=== PATIENT | male | born 1990 | race Hispanic/Latino ===

== ENCOUNTER 2017-06-06 20:59 | Emergency (ER) | payer SELFPAY | END 2017-06-06 22:56 | disposition home or self-care (01) | LOC: ERS 20:59 | DX: K64.8 Other hemorrhoids (principal); F17.210 Nicotine dependence, cigarettes, uncomplicated | CPT/HCPCS: 99282 ==

== ENCOUNTER 2019-03-20 15:23 | Emergency (ER) | payer SELFPAY ==
--- NOTE | 2019-03-20 15:50 | RAD ---
EXAM: XR Hand Rt 3 View STANDARD PROVIDED CLINICAL HISTORY: Pain status post injury COMPARISON: None FINDINGS: Comminuted, apex dorsally angulated fracture of the fifth metacarpal neck. No additional fracture is evident. Joint spaces appear preserved. Alignment appears otherwise anatomic. IMPRESSION: Angulated fifth metacarpal neck fracture.
[2019-03-20] MEDS ORDERED: HYDROcodone/Acetaminophen 5/325 mg Tablet ONE (17:32)
[2019-03-20] MEDS ORDERED: Lidocaine 1% (PF) 30 ML VIAL ONE (17:36)
== END 2019-03-20 19:18 | disposition home or self-care (01) ==
LOC: ERS 15:23
DX: S62.336A Displaced fracture of neck of fifth metacarpal bone, right hand, initial encounter for closed fracture (principal); W22.8XXA Striking against or struck by other objects, initial encounter
CPT/HCPCS: 29125; J2001

== ENCOUNTER 2019-05-26 17:58 | Inpatient (IN) | payer SELFPAY ==
[~2019-05-26 17:58] MED LIST: Iopamidol-370 76% 500 ML 1 ML ONE
[2019-05-26] MEDS ORDERED: Acetaminophen 500 MG TAB ONE (18:23)
[2019-05-26] MEDS ORDERED: Morphine 4 MG/ML VIAL ONE (18:23)
[2019-05-26] MEDS ORDERED: Ondansetron PF 4 MG/2 ML Vial ONE (18:24)
[2019-05-26 18:28] LABS: #Eosinphils 0.1 thou/uL (0.0-0.7); #Monocytes 1.9 thou/uL (0.11-0.59); #Neutrophils 14.8 thou/uL (1.40-6.50); %Basophils 0.1 % (0.0-1.0); %Eosinophils 0.4 % (0.0-10.0); %Lymphocytes 10.7 % (21.0-51.0); %Monocytes 9.9 % (0.0-10.0); Hemoglobin 13.9 g/dL (14.0-18.0); Mean Corpuscular HGB CONC 33.5 g/dL (32.0-36.0); Mean Corpuscular Volume 86.7 fL (78.0-98.0); Mean Platelet Volume 7.9 fL (7.4-10.4); Platelet Count 306 thou/uL (130-400); RBC Distribution Width 11.8 % (11.5-14.5); Red Blood Cell (RBC) Count 4.78 mill/uL (4.70-6.10); White Blood Cell (WBC) Count 18.7 thou/uL (4.8-10.8)
[2019-05-26 18:47] LABS: ALT (SGPT) 78 U/L (8-55); AST (SGOT) 40 U/L (5-34); Albumin 4.3 g/dL (3.5-5.0); Alkaline Phosphatase 195 U/L (40-110); Anion Gap 14 mmol/L (10-20); BUN (Urea Nitrogen) 8 mg/dL (8.9-20.6); Bilirubin, Total 0.8 mg/dL (0.2-1.2); Calc. Creatinine Clearance 0 mL/min (70-130); Calcium 9.8 mg/dL (7.8-10.44); Carbon Dioxide 27 mmol/L (22-29); Chloride 99 mmol/L (98-107); Estimated GFR-MDRD Greater than 90; Glucose 126 mg/dL (70-105); Lipase 6 U/L (8-78); Potassium 3.7 mmol/L (3.5-5.1); Protein, Total 8.3 g/dL (6.0-8.3); Sodium 136 mmol/L (136-145)
--- NOTE | 2019-05-26 18:50 | RAD ---
Chest one view HISTORY: Chest pain. COMPARISON: 10/19/2011. FINDINGS: Cardiac silhouette is magnified by projection. Pulmonary vasculature is unremarkable. Media stinum is midline. No lobar consolidation or evidence of pneumothorax. ekg monitor tech leads overlie the chest. IMPRESSION: No active cardiopulmonary abnormalities are demonstrated.
[2019-05-26 19:12] LABS: Bacteria/HPF None Seen HPF (None Seen); Bilirubin Negative (Negative); Blood, Urine Negative (Negative); Clarity Clear (Clear); Glucose, Urine (Dipstick) Normal (Negative); Leukocyte Negative Leu/uL (Negative); Nitrite Negative (Negative); Protein, Urine (Dipstick) 30 mg/dL (Neg-Trace); RBC/HPF 0-3 HPF (0-3); Squamous Epithelial 0-3 HPF (0-3); WBC/HPF 0-3 HPF (0-3)
--- NOTE | 2019-05-26 19:42 | CT ---
CT ABDOMEN AND PELVIS: 05/26/19 COMPARISON: 10/19/11 HISTORY: Periumbilical abdominal pain. TECHNIQUE: Axial CT imaging at 5 mm intervals from the lung bases through the pubic symphysis with IV contrast. Coronal and sagittal reformatted imaging obtained. FINDINGS: The imaged lung bases are unremarkable. No free intraperitoneal air. The liver, gallbladder, spleen, pancreas, adrenal glands and kidneys demonstrate no acute findings. M ild nonspecific splenomegaly noted. There is prominent pericolonic inflammatory change within the pelvis on the left. There is marked wal l thickening of the sigmoid colon involving a segment of the sigmoid colon measuring approximately 10 cm in length. Adjacent to this is an extraluminal collection of fluid and gas posterior to the sigmo id colon measuring approximately 5.2 x 4.6 cm consistent with a developing abscess on the basis of c olonic perforation. Findings are likely on the basis of acute perforated sigmoid diverticulitis. There is no evidence for bowel obstruction. The appendix is unremarkable. The vascular structures of the abdomen/pelvis appear patent. No abdominal or pelvic lymphadenopathy i s seen. Review of the osseous structures demonstrates no worrisome lytic or blastic bone lesion. IMPRESSION: Findings consistent with acute sigmoid diverticulitis with perforation and developing adjacent absces s measuring up to 5.[address] Hilario made aware via phone by Dr. Pope at 7:30 p.m., 05/26/19. Code CR POS: DIANA
[2019-05-26] MEDS ORDERED: Piperacillin/Tazobactam 4.5 GM VIAL ONE (19:57)
[2019-05-26] MEDS ORDERED: Morphine 4 MG/ML VIAL SLOW IVP PRN (21:42)
[2019-05-26] MEDS ORDERED: Ondansetron PF 4 MG/2 ML Vial IVP PRN ×2 (21:44→21:47)
[2019-05-26] MEDS ORDERED: Ondansetron ODT 4 MG TAB SL PRN (21:44)
[2019-05-26] MEDS ORDERED: Morphine 2 MG/ML SYRINGE SLOW IVP PRN (21:47)
[2019-05-26] MEDS: D5 1/2 NS w/20 mEq KCL 1,000 ML IV SCH (22:14)
[2019-05-26] MEDS: Sodium Chloride 0.9% 1,000 ML IV SCH (22:15)
--- NOTE | 2019-05-26 22:16 | HP ---
CHIEF COMPLAINT: Abdominal pain. HISTORY OF PRESENT ILLNESS: Mr. Moore is a 29-year-old man with abdominal pain beginning last Saturday. He states that this was in the lower part of his abdomen and was fairly mild, but by Saturday, he started having fevers and yesterday, the pain became much worse. It was especially bad when he tried to urinate or have a bowel movement and today became unbearable, so he came to the emergency room. No nausea or vomiting. No diarrhea. He had a normal bowel movement earlier today, but it was quite painful and he was unable to have a complete bowel movement. The pain is not exacerbated by walking around, but it is exacerbated by eating, trying to have a bowel movement or emptying his bladder. Lab work in the ER was concerning for sepsis and a CT scan showed colitis, likely diverticulitis with developing posterior abscess which measured 5.2 cm in greatest diameter. PAST MEDICAL HISTORY: None. PAST SURGICAL HISTORY: None. SOCIAL HISTORY: He smokes one cigarette every three or four days. Does not drink or do any drugs. He is currently on parole and undergoes frequent drug testing. He admits to marijuana in the past, but no heavy drugs. FAMILY HISTORY: Colon problems in his grandfather and a great uncle, but no other medical problems in the family. His great uncle had cancer. The exact nature of his grandfather's colon issue is not clear. REVIEW OF SYSTEMS: Ten system review of systems is negative except per HPI. PHYSICAL EXAMINATION: VITAL SIGNS: Low-grade fever and tachycardia in the emergency room. Normal blood pressure and room air O2 sats and respiratory rate. GENERAL: Reveals a healthy-appearing young man, in no acute distress. He is not flushed or toxic. He is not jaundiced or icteric. HEENT: Unremarkable. NECK: Supple without lymphadenopathy or thyroid nodules. HEART: Regular, slightly tachycardic. No murmurs, rubs, or gallops are appreciated. LUNGS: Clear to auscultation bilaterally. He does not have pain with deep inspiration. ABDOMEN: Soft and nondistended. He is nontender to palpation in the upper abdomen. Mildly tender to palpation in the right lower quadrant and moderately tender in the left lower quadrant. He exhibits some voluntary guarding, but does not have any rigidity or rebound. EXTREMITIES: Warm and well perfused without edema. NEURO: No focal deficits. PSYCHIATRIC: Alert, oriented, and appropriate. LABORATORY DATA: White count is elevated at 18,000. Electrolytes are unremarkable. Bilirubin is mildly elevated as is AST and ALT. Lipase is normal. CT images are reviewed with our radiologist. He has a developing abscess posterior to the sigmoid colon with surrounding inflammation and stranding of that segment of the sigmoid colon. He does have diverticula in this area and this is felt to likely represent diverticulitis. There is no walled off abscess and no clear line of approach to this area due to the sigmoid colon, iliac and epigastric vessels and the ureter. ASSESSMENT: Diverticulitis with phlegmon and likely developing abscess posterior to the sigmoid colon. This is not percutaneously accessible. The patient does not have peritonitis, although he does have an elevated white count and fever. He is fairly comfortable after receiving pain medications and antibiotics. We are going to try a brief trial of antibiotics and likely re-image him in 48-72 hours. If he is developing an abscess, then this will likely need to be drained perhaps laparoscopically if not accessible to percutaneous drainage. If his clinical condition deteriorates, then surgical intervention will be planned which would likely consist of a Kate's procedure. However, if the phlegmon improves on antibiotics, then medical management alone may be adequate. The diagnosis and plan of care were discussed with the patient. All of his questions were answered. We are going to leave him on bowel rest and continue antibiotics. He was given Zosyn in the ER and this will be ordered to be continued as an inpatient. Job ID: [id number]
[2019-05-26] MEDS: Acetaminophen 1,000 MG in Premix Bag 1 BAG IVPB PRN (22:41)
[2019-05-26 23:15] VITALS: BMI 30.1
[2019-05-27] MEDS: Piperacillin/Tazobactam 3.375 GM in Sodium Chloride 0.9% 100 ML IVPB SCH ×4 (01:27→20:28)
[2019-05-27] MEDS ORDERED: Piperacillin/Tazobactam 4.5 GM in Sodium Chloride 0.9% 100 ML IVPB SCH (04:00)
[2019-05-27 05:14] LABS: #Eosinphils 0.1 thou/uL (0.0-0.7); #Monocytes 1.9 thou/uL (0.11-0.59); #Neutrophils 10.9 thou/uL (1.40-6.50); %Basophils 0.3 % (0.0-1.0); %Eosinophils 0.4 % (0.0-10.0); %Lymphocytes 13.2 % (21.0-51.0); %Monocytes 12.5 % (0.0-10.0); %Neutrophils 73.5 % (42.0-75.0); Hemoglobin 13.1 g/dL (14.0-18.0); Mean Corpuscular HGB CONC 32.8 g/dL (32.0-36.0); Mean Corpuscular Volume 88.6 fL (78.0-98.0); Mean Platelet Volume 8.4 fL (7.4-10.4); Platelet Count 231 thou/uL (130-400); RBC Distribution Width 11.9 % (11.5-14.5); Red Blood Cell (RBC) Count 4.51 mill/uL (4.70-6.10); White Blood Cell (WBC) Count 14.8 thou/uL (4.8-10.8)
[2019-05-27] MEDS: Acetaminophen 1,000 MG in Premix Bag 1 BAG IVPB PRN ×2 (05:15→17:22)
[2019-05-27 05:40] LABS: ALT (SGPT) 65 U/L (8-55); AST (SGOT) 39 U/L (5-34); Albumin 3.7 g/dL (3.5-5.0); Alkaline Phosphatase 163 U/L (40-110); Anion Gap 13 mmol/L (10-20); BUN (Urea Nitrogen) 7 mg/dL (8.9-20.6); Bilirubin, Total 0.8 mg/dL (0.2-1.2); Calc. Creatinine Clearance 189 mL/min (70-130); Calcium 9.1 mg/dL (7.8-10.44); Carbon Dioxide 23 mmol/L (22-29); Chloride 106 mmol/L (98-107); Estimated GFR-MDRD Greater than 90; Globulin 3.7 g/dL (2.4-3.5); Glucose 104 mg/dL (70-105); Potassium 4.5 mmol/L (3.5-5.1); Protein, Total 7.4 g/dL (6.0-8.3); Sodium 137 mmol/L (136-145)
[2019-05-27] MEDS: Sodium Chloride 0.9% 1,000 ML IV SCH (06:24)
[2019-05-27] MEDS: D5 1/2 NS w/20 mEq KCL 1,000 ML IV SCH ×2 (06:26→12:43)
[2019-05-27] MEDS: Enoxaparin Sodium 40 MG/0.4 ML SYRINGE SC SCH (08:03)
[2019-05-27] MEDS: Famotidine/PF 20 mg/2ml Vial SLOW IVP SCH ×2 (08:04→20:29)
[2019-05-27] MEDS: Morphine 4 MG/ML VIAL SLOW IVP PRN (12:45)
--- NOTE | 2019-05-27 17:03 | PDOC.GSPN ---
Surgery Progress Note: Subj - Subjective Narrative: Saw patient this morning and again this afternoon. He woke up hurting quite a bit this morning but is feeling better this afternoon. He states that when the pain comes is usually a 4-5 but has been as high as an 8 out of 10. It is worse when he tries to urinate or sit up for a long time. No nausea or vomiting. He is hungry. Afebrile. Heart rate has come down. White count is better although still elevated. He still has fairly severe focal tenderness in the left lower quadrant with mild tenderness in the right lower quadrant. Assessment/plan: Diverticulitis with phlegmon/abscess which is not percutaneously accessible undergoing trial of medical management. Overall stable with slight improvement. Continue current management. Surgery Progress Note: Obj - Vital signs Vital signs: Vital Signs - Most Recent Temp Pulse Resp BP Pulse Ox 98.7 F 100 18 133/81 97 05/27/19 16:20 05/27/19 16:20 05/27/19 16:20 05/27/19 16:20 05/27/19 16:20 Surgery Progress Note: Results - Labs Result Diagrams: 05/27/19 04:57 05/27/19 04:57 Lab results: Laboratory Results - last 24 hr 05/27/19 05/27/19 04:57 04:57 WBC 14.8 H RBC 4.51 L Hgb 13.1 L Hct 39.9 L MCV 88.6 MCH 29.0 MCHC 32.8 RDW 11.9 Plt Count 231 MPV 8.4 Neutrophils % 73.5 Lymphocytes % 13.2 L Monocytes % 12.5 H Eosinophils % 0.4 Basophils % 0.3 Neutrophils # 10.9 H Lymphocytes # 2.0 Monocytes # 1.9 H Eosinophils # 0.1 Basophils # 0.0 Sodium 137 Potassium 4.5 Chloride 106 Carbon Dioxide 23 Anion Gap 13 BUN 7 L Creatinine 0.76 Estimated GFR (MDRD) Greater than 90 Glucose 104 Calcium 9.1 Total Bilirubin 0.8 AST 39 H ALT 65 H Alkaline Phosphatase 163 H Serum Total Protein 7.4 Albumin 3.7 Globulin 3.7 H Albumin/Globulin Ratio 1.0 L
[2019-05-28] MEDS: D5 1/2 NS w/20 mEq KCL 1,000 ML IV SCH ×6 (00:22→20:25)
[2019-05-28] MEDS: Morphine 4 MG/ML VIAL SLOW IVP PRN ×6 (00:49→20:35)
[2019-05-28] MEDS: Piperacillin/Tazobactam 3.375 GM in Sodium Chloride 0.9% 100 ML IVPB SCH ×4 (01:19→20:26)
[2019-05-28 05:30] LABS: #Eosinphils 0.1 thou/uL (0.0-0.7); #Lymphocytes 1.6 thou/uL (1.20-3.40); #Monocytes 1.8 thou/uL (0.11-0.59); #Neutrophils 9.4 thou/uL (1.40-6.50); %Basophils 0.2 % (0.0-1.0); %Eosinophils 0.8 % (0.0-10.0); %Lymphocytes 12.1 % (21.0-51.0); %Monocytes 13.8 % (0.0-10.0); %Neutrophils 73.1 % (42.0-75.0); Hemoglobin 12.6 g/dL (14.0-18.0); Mean Corpuscular HGB CONC 32.9 g/dL (32.0-36.0); Mean Corpuscular Hemoglobin 28.8 pg (27.0-31.0); Mean Corpuscular Volume 87.3 fL (78.0-98.0); Mean Platelet Volume 8.2 fL (7.4-10.4); Platelet Count 256 thou/uL (130-400); RBC Distribution Width 11.6 % (11.5-14.5); Red Blood Cell (RBC) Count 4.36 mill/uL (4.70-6.10); White Blood Cell (WBC) Count 12.9 thou/uL (4.8-10.8)
[2019-05-28 05:55] LABS: ALT (SGPT) 47 U/L (8-55); AST (SGOT) 19 U/L (5-34); Albumin 3.8 g/dL (3.5-5.0); Alkaline Phosphatase 151 U/L (40-110); Anion Gap 12 mmol/L (10-20); BUN (Urea Nitrogen) 4 mg/dL (8.9-20.6); Bilirubin, Total 1.2 mg/dL (0.2-1.2); Calc. Creatinine Clearance 171 mL/min (70-130); Calcium 9.3 mg/dL (7.8-10.44); Carbon Dioxide 25 mmol/L (22-29); Chloride 102 mmol/L (98-107); Estimated GFR-MDRD Greater than 90; Globulin 3.6 g/dL (2.4-3.5); Glucose 107 mg/dL (70-105); Protein, Total 7.4 g/dL (6.0-8.3); Sodium 135 mmol/L (136-145)
[2019-05-28] MEDS: Enoxaparin Sodium 40 MG/0.4 ML SYRINGE SC SCH (09:00)
[2019-05-28] MEDS: Famotidine/PF 20 mg/2ml Vial SLOW IVP SCH ×2 (09:00→20:25)
--- NOTE | 2019-05-28 13:43 | PDOC.GSPN ---
Surgery Progress Note: Subj - Subjective Narrative: Patient had an episode of severe pain around midnight but after morphine it came down to about a 2. The pain came back this morning and he is having fairly severe dysuria which is noted today. No fevers. White count is slightly lower. He still has focal suprapubic and left lower quadrant pain without rigidity rebound or guarding. Assessment/plan: Persistent although somewhat episodic lower abdominal pain after over 24 hours of IV antibiotics. Going to reimage his abdomen. If the infectious process is resolving we'll give antibiotics more time but he may require operative drainage or even diversion. Surgery Progress Note: Obj - Vital signs Vital signs: Vital Signs - Most Recent Temp Pulse Resp BP Pulse Ox 98.5 F 93 16 93/40 L 99 05/28/19 11:22 05/28/19 11:22 05/28/19 11:22 05/28/19 11:22 05/28/19 11:22 Surgery Progress Note: Results - Labs Result Diagrams: 05/28/19 04:43 05/28/19 04:43 Lab results: Laboratory Results - last 24 hr 05/28/19 05/28/19 04:43 04:43 WBC 12.9 H RBC 4.36 L Hgb 12.6 L Hct 38.1 L MCV 87.3 MCH 28.8 MCHC 32.9 RDW 11.6 Plt Count 256 MPV 8.2 Neutrophils % 73.1 Lymphocytes % 12.1 L Monocytes % 13.8 H Eosinophils % 0.8 Basophils % 0.2 Neutrophils # 9.4 H Lymphocytes # 1.6 Monocytes # 1.8 H Eosinophils # 0.1 Basophils # 0.0 Sodium 135 L Potassium 4.0 Chloride 102 Carbon Dioxide 25 Anion Gap 12 BUN 4 L Creatinine 0.84 Estimated GFR (MDRD) Greater than 90 Glucose 107 H Calcium 9.3 Total Bilirubin 1.2 AST 19 ALT 47 Alkaline Phosphatase 151 H Serum Total Protein 7.4 Albumin 3.8 Globulin 3.6 H Albumin/Globulin Ratio 1.1 L
[2019-05-28] MEDS ORDERED: Iopamidol-370 76% 500 ML 1 ML ONE (15:17)
--- NOTE | 2019-05-28 15:34 | CT ---
CT OF THE ABDOMEN AND PELVIS WITH IV CONTRAST INDICATION: History of sigmoid diverticula colitis and pericolonic abscess COMPARISON: Prior CT abdomen and pelvis dated May 26, 2019 FINDINGS: ABDOMEN: Lung bases: Clear Liver: No focal lesion. Gallbladder: Normal appearing. Pancreas: Normal. Adrenal glands: Normal. Spleen: Normal. Kidneys and ureters: Normal. No hydronephrosis. Vasculature: Normal. Lymph nodes:No lymphadenopathy. Free fluid in abdomen:No free fluid is evident. PELVIS: Small and large bowel: There is persistent wall thickening involving the proximal sigmoid colon. The posterior and inferior. The nasima-colonic abscess is slightly larger on today's evaluation now measuring 5.9 x 4.1 x 3.5 cm in its greatest AP, mediolateral and craniocaudad dimensions respectivel y whereas the collection on the prior examination measured 5.1 x 2.8 x 3.5 cm. Appendix:Normal Bladder: Decompressed with diffuse wall thickening Rectal and perirectal soft tissues:Normal. Reproductive structures: Normal. Free fluid in pelvis: There is mild inflammatory stranding and free fluid within the lower pelvis. Lymphadenopathy pelvis: No lymphadenopathy is evident. Osseous structures: No acute osseous abnormality. No destructive osteolytic or osteoblastic lesion i s identified. Soft tissues:Normal. IMPRESSION: 1. Interval enlargement of the pericolonic abscess seen adjacent to the sigmoid colon likely related to perforated sigmoid diverticulitis. The position of this collection, posterior to the sigmoid colon, makes percutaneous CT drainage unfeasible.
[2019-05-28 19:45] LABS: Bacteria/HPF None Seen HPF (None Seen); Bilirubin Negative (Negative); Blood, Urine Negative (Negative); Clarity Clear (Clear); Glucose, Urine (Dipstick) Normal (Negative); Leukocyte Negative Leu/uL (Negative); Nitrite Negative (Negative); Protein, Urine (Dipstick) Negative (Neg-Trace); RBC/HPF 0-3 HPF (0-3); Squamous Epithelial 0-3 HPF (0-3); WBC/HPF 0-3 HPF (0-3)
[2019-05-28 19:47] LABS: Urine Culture Reflex No No
[2019-05-28] MEDS ORDERED: Morphine 2 MG/ML SYRINGE SLOW IVP PRN (20:08)
[2019-05-29] MEDS: Piperacillin/Tazobactam 3.375 GM in Sodium Chloride 0.9% 100 ML IVPB SCH ×4 (02:01→20:27)
[2019-05-29] MEDS: Morphine 4 MG/ML VIAL SLOW IVP PRN ×5 (03:59→21:53)
[2019-05-29] MEDS: D5 1/2 NS w/20 mEq KCL 1,000 ML IV SCH ×3 (04:04→20:27)
[2019-05-29] MEDS: Famotidine/PF 20 mg/2ml Vial SLOW IVP SCH ×2 (08:08→20:26)
[2019-05-29] MEDS: Enoxaparin Sodium 40 MG/0.4 ML SYRINGE SC SCH (08:08)
[2019-05-29] MEDS ORDERED: Dexamethasone 20 MG/5 ML VIAL ONE (11:25)
[2019-05-29] MEDS ORDERED: Lidocaine 1% PF 5 ML VIAL ONE (11:25)
[2019-05-29] MEDS ORDERED: PROPOFOL 200 MG/20 ML VIAL ONE (11:25)
[2019-05-29] MEDS ORDERED: Ketorolac Tromethamine 30 MG/ML VIAL ONE (11:25)
[2019-05-29] MEDS ORDERED: Rocuronium Bromide 10 MG/ML (10ML VIAL) ONE (11:25)
[2019-05-29] MEDS ORDERED: Ondansetron PF 4 MG/2 ML Vial ONE (11:25)
[2019-05-29] MEDS ORDERED: Glycopyrrolate 0.2 MG/ML 5 ML SYRINGE ONE (11:25)
[2019-05-29] MEDS ORDERED: Succinylcholine Chloride 20 MG/ML 10 ml SYRINGE FS ONE (11:25)
[2019-05-29] MEDS ORDERED: Bupivacaine HCl 0.5%/Epinephrine 1:200,000/PF 30 ml Vial ONE ×2 (13:44→14:44)
[2019-05-29] MEDS ORDERED: Bupivacaine 0.25% HCL 30 ML VIAL ONE (13:44)
[2019-05-29] MEDS ORDERED: Fentanyl 100 MCG/2 ML VIAL ONE ×5 (13:48→18:03)
[2019-05-29] MEDS ORDERED: Lidocaine 2% PF 5 ML VIAL ONE (14:44)
[2019-05-29] MEDS ORDERED: Meperidine HCl/PF 25 MG/ML VIAL SLOW IVP PRN (14:46)
[2019-05-29] MEDS ORDERED: Promethazine HCl 25 MG/ML VIAL SLOW IVP PRN (14:46)
[2019-05-29] MEDS ORDERED: HYDROmorphone 2 MG/ML VIAL SLOW IVP PRN (14:46)
[2019-05-29] MEDS ORDERED: Promethazine HCl 25 MG/ML VIAL IM PRN ×2 (14:46→22:40)
[2019-05-29] MEDS ORDERED: Ondansetron HCl/PF 4 MG/2 ML Vial IVP PRN (14:46)
--- NOTE | 2019-05-29 14:53 | PDOC.GSPN ---
Surgery Progress Note: Subj - Subjective Narrative: Patient continues to have episodes of severe lower abdominal pain relieved by morphine. No nausea or vomiting. White count is normal and vital signs are okay. Abdomen is still focally tender in the lower abdomen. Assessment/plan: Severe diverticulitis with enlarging diverticular abscess. Colonic inflammation and pain have not improved on IV antibiotics and I have recommended laparoscopic drainage of the abscess and diversion. I do not plan on performing a sigmoid colectomy at this time due to the severe inflammation of the colon and high risk of injury to ureter and other nearby structures, however this will be performed if necessary. Once he is diverted and drained the remaining inflammation should resolve, but this will not be immediate. We had a long discussion about the operation and its inherent risks and he wants to proceed. All of his questions were answered. Surgery Progress Note: Obj - Vital signs Vital signs: Vital Signs - Most Recent Temp Pulse Resp BP Pulse Ox 98.8 F 98 14 118/71 95 05/29/19 12:14 05/29/19 12:14 05/29/19 12:14 05/29/19 12:14 05/29/19 12:14 Surgery Progress Note: Results - Labs Result Diagrams: 05/28/19 04:43 05/28/19 04:43
[2019-05-29] MEDS ORDERED: diphenhydrAMINE 50 MG/ML VIAL IVP PRN (22:40)
[2019-05-29] MEDS ORDERED: Ondansetron PF 4 MG/2 ML Vial IVP PRN (22:40)
[2019-05-29] MEDS ORDERED: fentaNYL Citrate/PF 2,000 MCG in Sodium Chloride 0.9% 60 ML IV PRN (22:40)
[2019-05-29] MEDS ORDERED: Zolpidem Tartrate 5 MG TAB PO PRN (22:40)
[2019-05-29] MEDS ORDERED: Naloxone HCl 0.4 mg/ml Vial IV PRN (22:40)
[2019-05-29] MEDS ORDERED: diphenhydrAMINE 25 MG CAP PO PRN (22:40)
[2019-05-29] MEDS ORDERED: diphenhydrAMINE 50 MG/ML VIAL IM PRN (22:40)
[2019-05-29] MEDS ORDERED: Communication Order-Pharmacy FS SCH (22:45)
[2019-05-29] MEDS: Acetaminophen 1,000 MG in Premix Bag 1 BAG IVPB SCH (23:30)
[2019-05-29] MEDS: Ketorolac Tromethamine 30 MG/ML VIAL IVP SCH (23:31)
[2019-05-30] MEDS: Piperacillin/Tazobactam 3.375 GM in Sodium Chloride 0.9% 100 ML IVPB SCH ×4 (02:05→20:46)
[2019-05-30 05:41] LABS: #Lymphocytes 1.2 thou/uL (1.20-3.40); #Monocytes 1.1 thou/uL (0.11-0.59); #Neutrophils 11.6 thou/uL (1.40-6.50); %Basophils 0.1 % (0.0-1.0); %Eosinophils 0.3 % (0.0-10.0); %Lymphocytes 8.8 % (21.0-51.0); %Monocytes 7.9 % (0.0-10.0); %Neutrophils 82.9 % (42.0-75.0); Hemoglobin 12.2 g/dL (14.0-18.0); Mean Corpuscular HGB CONC 33.7 g/dL (32.0-36.0); Mean Corpuscular Hemoglobin 29.2 pg (27.0-31.0); Mean Corpuscular Volume 86.6 fL (78.0-98.0); Mean Platelet Volume 7.7 fL (7.4-10.4); Platelet Count 313 thou/uL (130-400); RBC Distribution Width 11.6 % (11.5-14.5); Red Blood Cell (RBC) Count 4.18 mill/uL (4.70-6.10)
[2019-05-30] MEDS: Acetaminophen 1,000 MG in Premix Bag 1 BAG IVPB SCH ×3 (05:41→18:22)
[2019-05-30] MEDS: Ketorolac Tromethamine 30 MG/ML VIAL IVP SCH ×3 (05:41→18:22)
[2019-05-30 05:59] LABS: Anion Gap 10 mmol/L (10-20); BUN (Urea Nitrogen) 7 mg/dL (8.9-20.6); Calc. Creatinine Clearance 192 mL/min (70-130); Calcium 9.1 mg/dL (7.8-10.44); Carbon Dioxide 27 mmol/L (22-29); Chloride 102 mmol/L (98-107); Estimated GFR-MDRD Greater than 90; Glucose 113 mg/dL (70-105); Potassium 4.3 mmol/L (3.5-5.1); Sodium 135 mmol/L (136-145)
[2019-05-30] MEDS: Enoxaparin Sodium 40 MG/0.4 ML SYRINGE SC SCH (08:16)
[2019-05-30] MEDS: Famotidine/PF 20 mg/2ml Vial SLOW IVP SCH ×2 (08:16→20:46)
[2019-05-30] MEDS: D5 1/2 NS w/20 mEq KCL 1,000 ML IV SCH ×2 (08:25→20:46)
--- NOTE | 2019-05-30 11:37 | PDOC.GSPN ---
Surgery Progress Note: Subj - Subjective Narrative: Patient is feeling better today. The CATTLE TESTER has really helped with his pain. It is a combination of the lower abdominal pain he was having before surgery plus the incisional pain. He is not having any nausea or vomiting. His colostomy has not yet put out any gas or stool. He is afebrile with normal vital signs. His white count is still elevated however. Abdomen is soft and nondistended. He is still focally tender in the lower abdomen and around his incisions. His colostomy looks healthy. The bag is empty. Assessment/plan: Doing well status post drainage of diverticular abscess and diversion. Awaiting return of bowel function. Continue IV antibiotics and await culture results. Dr. Robbins is covering this weekend. Surgery Progress Note: Obj - Vital signs Vital signs: Vital Signs - Most Recent Temp Pulse Resp BP Pulse Ox 97.5 F L 68 18 110/67 96 05/30/19 11:02 05/30/19 11:02 05/30/19 11:02 05/30/19 11:02 05/30/19 11:02 Surgery Progress Note: Results - Labs Result Diagrams: 05/30/19 05:23 05/30/19 05:23 Lab results: Laboratory Results - last 24 hr 05/30/19 05/30/19 05:23 05:23 WBC 14.0 H RBC 4.18 L Hgb 12.2 L Hct 36.1 L MCV 86.6 MCH 29.2 MCHC 33.7 RDW 11.6 Plt Count 313 MPV 7.7 Neutrophils % 82.9 H Lymphocytes % 8.8 L Monocytes % 7.9 Eosinophils % 0.3 Basophils % 0.1 Neutrophils # 11.6 H Lymphocytes # 1.2 Monocytes # 1.1 H Eosinophils # 0.0 Basophils # 0.0 Sodium 135 L Potassium 4.3 Chloride 102 Carbon Dioxide 27 Anion Gap 10 BUN 7 L Creatinine 0.75 Estimated GFR (MDRD) Greater than 90 Glucose 113 H Calcium 9.1
--- NOTE | 2019-05-30 11:57 | PDOC.OP ---
Operative Note - Operative Note Operative Note: PROCEDURE: Laparoscopic drainage of diverticular abscess, and descending colostomy SURGEON: Marlon Hutson M.D. DATE: 05/29/2019 PREOPERATIVE DIAGNOSIS: Diverticular abscess POSTOPERATIVE DIAGNOSIS: Diverticular abscess HISTORY: Patient with severe diverticulitis which is failed medical management. He has not enlarging diverticular abscess which is not percutaneously accessible. Recommendation was made to proceed to the operating room for laparoscopic drainage of the diverticular abscess and diversion of the fecal stream. PROCEDURE IN DETAIL: After informed consent was obtained and appropriate preoperative antibodies continued, the patient was taken to the operating room where he was placed in supine position and general endotracheal anesthesia was administered. The stomach was decompressed with an NG tube and the bladder decompressed with a Willis catheter and he was prepped and draped in standard sterile fashion. Local anesthesia was infused the skin and subcutaneous tissues at the level of the umbilicus and a transverse skin incision was made. The fascia was elevated and a Veress needle placed into the abdominal cavity but insufflation pressures rapidly apoorva to 15 consistent with insufflation into the preperitoneal space. A second attempt was made with the same result. Dissection was carried down to the fascia which was incised under direct vision and stay sutures placed. The peritoneum was grasped, elevated examined, and cut under direct vision. A trocar was placed into the peritoneal cavity and carbon dioxide gas insufflated to an intra-abdominal pressure 15 which the patient tolerated well. Dissecting trochars were then placed in the right lateral abdomen under direct laparoscopic vision and the inflamed segment of sigmoid colon identified densely adherent to the lateral sidewall. A plane was able to be developed between the colon and the lateral sidewall draining a large retrosigmoid abscess. All pus was suctioned out and sent for Gram stain and culture. The abscess cavity was then gently irrigated to clear taking care not to overfill the cavity and spilled contents into the general abdominal cavity. The colon proximal and distal to the inflamed loop of sigmoid colon were grossly normal to palpation and inspection. The descending colon was soft and noninflamed. This was mobilized medially by incising the white line of Toldt down to the level of the inflamed sigmoid colon. A mesenteric window was then created close to the wall of the descending colon just proximal to the inflamed segment of sigmoid colon. The laparoscopic bowel stapler was placed across the colon which was then divided. An area in the left rectus sheath was identified where the bowel was lax enough to reach up to the abdominal wall. An incision was made and dissection carried down to the anterior rectus sheath which was incised in a cruciate manner. The underlying muscles were split and the posterior rectus sheath was incised in cruciate manner as well. The colon was drawn out through the incision and confirmed to be in good orientation without twisting. This easily reached to the skin without tension and was secured with a [place] grasper. The patient had a large amount of pericolonic fat which prevented desufflation. The bowel was examined laparoscopically and confirmed to be in good orientation. A GUMARO drain was then placed through the right lower quadrant 12 mm trocar and drawn out through the right lateral 5 mm trocar. The end of the drain was placed into the abscess cavity. The 12 mm trocar was then withdrawn and the defect closed with a 0 Vicryl suture on a GraNee needle with excellent technical result. The drain was carefully watched as gas was desufflated through the umbilical trocar and confirmed to stay in good position with the end in the abscess cavity. The umbilical trocar was then removed and secured with the previously placed stay sutures. Additional local anesthesia infused at the skin incisions. The drain was secured to the skin with a drain stitch and the laparoscopic incisions were closed with 4-0 subcuticular Monocryl. Dermabond dressings were placed and the drain was dressed with gauze and Tegaderm. Attention was then turned to maturation of the colostomy. Due to the large amount of fatty tissue around the colon, and the large amount of subcutaneous fat, it was not possible to secure the colon to the anterior rectus sheath. The staple line was resected and the colon appeared small but healthy. An everted colostomy was created by securing the dermis to a Lembert suture several centimeters distal to the cut end of the colon and then to the edge of the colon at 4 quadrants. The full-thickness edge of the colon was then secured to the dermis circumferentially with interrupted 3-0 Vicryl sutures. Once this was completed the colostomy was interrogated digitally and was widely patent through the fascia. A colostomy appliance was placed and the patient was extubated and taken to recovery in good condition. Estimated blood loss was minimal. There were no complications. Specimen is pus for Gram stain and culture.
[2019-05-30] MEDS: fentaNYL Citrate/PF 2,000 MCG in Sodium Chloride 0.9% 60 ML IV PRN (15:58)
[2019-05-31] MEDS: Ketorolac Tromethamine 30 MG/ML VIAL IVP SCH ×3 (00:54→11:15)
[2019-05-31] MEDS: Piperacillin/Tazobactam 3.375 GM in Sodium Chloride 0.9% 100 ML IVPB SCH ×4 (00:55→20:33)
[2019-05-31 04:09] LABS: #Eosinphils 0.1 thou/uL (0.0-0.7); #Lymphocytes 1.8 thou/uL (1.20-3.40); %Basophils 0.1 % (0.0-1.0); %Eosinophils 1.2 % (0.0-10.0); %Lymphocytes 20.3 % (21.0-51.0); %Monocytes 11.5 % (0.0-10.0); Hemoglobin 10.5 g/dL (14.0-18.0); Mean Corpuscular Hemoglobin 28.8 pg (27.0-31.0); Mean Corpuscular Volume 87.1 fL (78.0-98.0); Mean Platelet Volume 7.7 fL (7.4-10.4); Platelet Count 289 thou/uL (130-400); RBC Distribution Width 11.7 % (11.5-14.5); Red Blood Cell (RBC) Count 3.66 mill/uL (4.70-6.10); White Blood Cell (WBC) Count 8.9 thou/uL (4.8-10.8)
[2019-05-31 04:32] LABS: Anion Gap 11 mmol/L (10-20); BUN (Urea Nitrogen) 5 mg/dL (8.9-20.6); Calc. Creatinine Clearance 192 mL/min (70-130); Calcium 8.6 mg/dL (7.8-10.44); Carbon Dioxide 27 mmol/L (22-29); Chloride 104 mmol/L (98-107); Estimated GFR-MDRD Greater than 90; Glucose 99 mg/dL (70-105); Potassium 3.8 mmol/L (3.5-5.1); Sodium 138 mmol/L (136-145)
[2019-05-31] MEDS: D5 1/2 NS w/20 mEq KCL 1,000 ML IV SCH ×2 (05:34→11:16)
[2019-05-31] MEDS: fentaNYL Citrate/PF 2,000 MCG in Sodium Chloride 0.9% 60 ML IV PRN (05:53)
[2019-05-31] MEDS: Famotidine/PF 20 mg/2ml Vial SLOW IVP SCH (09:34)
[2019-05-31] MEDS: Enoxaparin Sodium 40 MG/0.4 ML SYRINGE SC SCH (09:34)
[2019-05-31] MEDS ORDERED: traMADol HCl 50 MG TAB PO PRN (16:21)
[2019-05-31] MEDS ORDERED: HYDROcodone/Acetaminophen 5/325 mg Tablet PO PRN ×2 (16:21)
--- NOTE | 2019-05-31 16:29 | PRG ---
DATE OF SERVICE: 05/31/2019 SUBJECTIVE: Konrad Mooer is doing well today. He is afebrile. He is tolerating full liquids. He is having some belching. He has some output gas in small amounts throughout his colostomy. Colostomy is healthy. OBJECTIVE: LUNGS: Clear to auscultation. CARDIAC: Regular rate and rhythm. ABDOMEN: Soft and obese. Bowel sounds present. VITAL SIGNS: Temperature 98.2, heart rate 88, and blood pressure 120/80. ASSESSMENT AND PLAN: He has been instructed on colostomy care. Overall, he is doing well. We would recommend we hep-lock him. Resume his regular diet. Discontinue his CATCHER HELPER and plan for discharge home tomorrow. Job ID: [id number]
[2019-05-31] MEDS: Ibuprofen 600 MG TAB PO PRN (19:38)
[2019-05-31] MEDS: Acetaminophen 500 MG TAB PO PRN (19:39)
[2019-05-31] MEDS: traMADol HCl 50 MG TAB PO PRN (19:40)
[2019-05-31] MEDS: Gabapentin 300 MG CAP PO SCH (20:32)
[2019-06-01] MEDS: Ibuprofen 600 MG TAB PO PRN ×2 (02:32→13:44)
[2019-06-01] MEDS: traMADol HCl 50 MG TAB PO PRN ×3 (02:33→16:00)
[2019-06-01] MEDS: Piperacillin/Tazobactam 3.375 GM in Sodium Chloride 0.9% 100 ML IVPB SCH ×3 (02:35→13:36)
[2019-06-01] MEDS: Acetaminophen 500 MG TAB PO PRN ×3 (02:40→16:01)
[2019-06-01] MEDS: Gabapentin 300 MG CAP PO SCH (08:00)
[2019-06-01] MEDS: Enoxaparin Sodium 40 MG/0.4 ML SYRINGE SC SCH (08:00)
[2019-06-01 11:24] VITALS: TEMP 97.8
[2019-06-01 14:56] VITALS: BP 153/79
--- NOTE | 2019-06-01 15:13 | PRG ---
DATE OF SERVICE: 06/01/2019 SUBJECTIVE: Konrad Moore is doing well today. He is tolerating his diet. He has been instructed on colostomy care. His colostomy is functional and has produced stool. He has successfully changed his colostomy. He has viewed the video, and the stomal therapist is educating him on stoma care. He is tolerating regular diet. OBJECTIVE: LUNGS: Clear to auscultation. CARDIAC: Regular rate and rhythm without murmur or gallop. ABDOMEN: Soft and nontender. No masses. Colostomy is healthy. VITAL SIGNS: Temperature 97.8 degrees, heart rate 64, blood pressure 153/81. LABORATORY DATA: Laboratories yesterday were normal. ASSESSMENT AND PLAN: Status post colostomy diversion for severe diverticulitis without sigmoid resection. Plan is to discharge home today with Augmentin 875 p.o. b.i.d. for 7 days; Ultram p.r.n. pain, #30, 1 refill; [id number] Tylenol 1000 mg p.o. q.i.d., and Advil 600 mg q.i.d. p.r.n. pain. Follow up with Dr. Hutson in 3 to 4 weeks. Job ID: [id number]
[2019-06-01] MEDS ORDERED: Amoxicillin/Potassium Clav 875 MG TAB PO SCH (21:00)
--- NOTE | 2019-06-04 08:33 | PQF ---
Konrad Moore KIMIYE MD [id number] CLINICAL DOCUMENTATION CLARIFICATION FORM: POST DISCHARGE Addendum to original discharge summary date: ____ Late entry note date: __ DATE:06/04/2019 ATTN:JOSE GRIFFIN MD Please exercise your independent, professional judgment in responding to the clarification form. Clinical indicators are provided on the bottom of this form for your review Please check appropriate box(s) to clarify if the following diagnosis has been ruled in or ruled out:Sepsis [ ] Ruled in diagnosis [ ] Continue to treat [ ] Resolved [ ] Ruled out diagnosis [ ] Cannot rule out diagnosis [ ] Other diagnosis [ ] Unable to determine For continuity of documentation, please document condition throughout progress notes and discharge summary. Thank You. CLINICAL INDICATORS - SIGNS / SYMPTOMS / LABS Historian reports fever,Measured temperature of 100.0-Documented in ED on 05/26 by Sulaiman Thurman [id number] in ED on 05/26 by Sulaiman Thurman [id number] in ED on 05/26 by Sulaiman Thurman Tachycardic-Documented in ED on 05/26 by Sulaiman Thurman Perforated diverticulitis with abscess-Documented in ED on 05/26 by Sulaiman Thurman Sepsis-Documented in ED on 05/26 by Sulaiman Thurman WBC-18.7-Documented in Laboratory RISK FACTORS Perforated diverticulitis with abscess-Documented in ED on 05/26 by Sulaiman Thurman TREATMENTS Zosyn 3.375 gm IVPB-Documented in Medication snapshot Laparoscopic drainage of diverticular abscess and descending colostomy- Documented in OP note on 05/29 by Blanquita mckeon [employer] Needle Molder [employer] Win[employer] (This form is maintained as a part of the permanent medical record) 2014 [employer]. All Rights Reserved [email or web address] [not provided] VENTURA
== END 2019-06-01 16:15 | disposition home or self-care (01) | DRG 331 ==
LOC: ERS 17:58 → OBSVTOIN 19:39 → SJJU 19:39
PROVIDERS: ADMIT Surgery; ATTEND Surgery
PROC: 0D1M4Z4 Bypass Descending Colon to Cutaneous, Percutaneous Endoscopic Approach (ICD-10-PCS; principal; 2019-05-29)
PROC: 0D9N80Z Drainage of Sigmoid Colon with Drainage Device, Via Natural or Artificial Opening Endoscopic (ICD-10-PCS; 2019-05-29)
DX: K57.20 Diverticulitis of large intestine with perforation and abscess without bleeding (principal); F17.210 Nicotine dependence, cigarettes, uncomplicated
CPT/HCPCS: 36415; 36416; 71045; 74177; 80048; 80053; 81001; 81003; 81015; 83605; 83690; 85025; 87040; 87070; 87077; 87086; 87186; 87205; 93005; 96361; 96365; 96374; 96375; J0131; J0670; J1100; J1650; J1885; J2001; J2270; J2405; J2543; J2704; J3010; J3490; Q0163; Q9967; S0020; S0028

== ENCOUNTER 2019-07-13 17:58 | Observation (INO) | payer SELFPAY ==
[2019-07-13 18:46] LABS: #Lymphocytes 1.7 thou/uL (1.20-3.40); #Neutrophils 14.7 thou/uL (1.40-6.50); %Basophils 0.1 % (0.0-1.0); %Eosinophils 0.3 % (0.0-10.0); %Lymphocytes 9.3 % (21.0-51.0); %Monocytes 10.9 % (0.0-10.0); %Neutrophils 79.5 % (42.0-75.0); Hemoglobin 16.1 g/dL (14.0-18.0); Mean Corpuscular HGB CONC 33.7 g/dL (32.0-36.0); Mean Corpuscular Hemoglobin 29.3 pg (27.0-31.0); Mean Platelet Volume 9.5 fL (7.4-10.4); Platelet Count 187 thou/uL (130-400); RBC Distribution Width 13.5 % (11.5-14.5); Red Blood Cell (RBC) Count 5.49 mill/uL (4.70-6.10); White Blood Cell (WBC) Count 18.5 thou/uL (4.8-10.8)
--- NOTE | 2019-07-13 19:00 | CT ---
EXAM: CT abdomen and pelvis with IV contrast PROVIDED CLINICAL HISTORY: Abdominal pain COMPARISON: 05/28/2019 FINDINGS: The visualized lung bases are free of significant opacity. The solid abdominal organs demonstrate an unremarkable CT appearance. There is no bowel dilatation, inflammatory fat stranding, free fluid or free air apparent. There is n o evidence for appendicitis. Interval changes of diverting colostomy in the left lower quadrant. There is been interval resolution of the fluid collection previously demonstrated in the pelvis with a minimal amount of scar/granulation tissue seen in this region. No regional lymph node enlargement apparent. The regional major vascular structures appear unremarkab le. The osseous structures demonstrate no concerning lytic or blastic lesions. IMPRESSION: No evidence for an acute process.
[2019-07-13] MEDS ORDERED: Morphine 4 MG/ML VIAL ONE (19:07)
[2019-07-13 19:10] LABS: ALT (SGPT) 114 U/L (8-55); AST (SGOT) 47 U/L (5-34); Alkaline Phosphatase 157 U/L (40-110); Anion Gap 13 mmol/L (10-20); BUN (Urea Nitrogen) 9 mg/dL (8.9-20.6); Bilirubin, Total 0.9 mg/dL (0.2-1.2); Calc. Creatinine Clearance 0 mL/min (70-130); Calcium 10.2 mg/dL (7.8-10.44); Carbon Dioxide 30 mmol/L (22-29); Chloride 96 mmol/L (98-107); Estimated GFR-MDRD Greater than 90; Glucose 96 mg/dL (70-105); Lipase 7 U/L (8-78); Sodium 135 mmol/L (136-145)
[2019-07-13] MEDS ORDERED: Ondansetron PF 4 MG/2 ML Vial ONE (19:20)
[2019-07-13] MEDS ORDERED: metroNIDAZOLE 500 MG/100 ML BAG ONE (19:46)
[2019-07-13] MEDS ORDERED: Acetaminophen 500 MG TAB ONE (21:51)
[2019-07-13 22:42] VITALS: BMI 30.7
[2019-07-13] MEDS ORDERED: Morphine 2 MG/ML SYRINGE SLOW IVP SCH (22:46)
[2019-07-13] MEDS ORDERED: Ondansetron ODT 4 MG TAB PO PRN (23:48)
[2019-07-13] MEDS ORDERED: Acetaminophen 650 MG Suppository PR PRN (23:48)
[2019-07-13] MEDS ORDERED: Acetaminophen 325 MG TAB PO PRN (23:48)
[2019-07-13] MEDS ORDERED: Ondansetron PF 4 MG/2 ML Vial IVP PRN (23:48)
[2019-07-14 00:38] LABS: Bacteria/HPF None Seen HPF (None Seen); Bilirubin Negative (Negative); Blood, Urine Negative (Negative); Clarity Clear (Clear); Glucose, Urine (Dipstick) Normal (Negative); Leukocyte Negative Leu/uL (Negative); Nitrite Negative (Negative); Protein, Urine (Dipstick) Negative (Neg-Trace); RBC/HPF 0-3 HPF (0-3); Squamous Epithelial 0-3 HPF (0-3); Urobilinogen Normal mg/dL (Less than 2); WBC/HPF 0-3 HPF (0-3)
[2019-07-14 00:41] LABS: Urine Culture Reflex No No
--- NOTE | 2019-07-14 01:12 | HP ---
TIME OF ASSESSMENT: 2300 hours. CHIEF COMPLAINT: Left-sided abdominal pain. HISTORY OF PRESENT ILLNESS: Mr. Moore is a pleasant 29-year-old gentleman with a history of diverticular disease, who recently underwent laparoscopic drainage of a diverticular abscess and descending colostomy on May 29, 2019, by Dr. Hutson. The patient states he has been doing well since being discharged home. However, in the last couple of days, has developed some left-sided abdominal discomfort and low-grade temperatures. He reports noting some changes with his stool output. He states it is more watery than usual, but denies any blood. He has noted some increased abdominal swelling as well. He is passing gas through the ostomy. Reports feeling mildly nauseated but denies having any vomiting. Continues to tolerate a regular diet. He has been experiencing increasing fatigue with exertion and feeling "winded." Reports experiencing left-sided chest pain on one occasion, which was sharp in nature, but has not had recurrent chest pain for several days. Also reports having discomfort in the bilateral lower extremities. He denies any cramping, but states he feel "sore." Denies any cough or hemoptysis. Also reports noting some slight swelling bilaterally. REVIEW OF SYSTEMS: He denies having any dysuria or hematuria. No headaches or dizziness. No muscle aches. No runny nose or sore throat. All other review of systems is negative. ALLERGIES: NO KNOWN DRUG ALLERGIES. CURRENT MEDICATIONS: 1. Acetaminophen. 2. Ibuprofen. 3. Tramadol. PAST MEDICAL HISTORY: 1. Diverticular disease. 2. Diverticular abscess requiring surgery. PAST SURGICAL HISTORY: Diverticular abscess drainage and colostomy in May 2019. SOCIAL HISTORY: Denies any alcohol consumption or illicit drug use. Reports smoking cigarettes on occasion. FAMILY HISTORY: Noncontributory. PHYSICAL EXAMINATION: GENERAL: The patient appears well developed, well nourished, is in no acute distress. VITAL SIGNS: Temperature 99.5, pulse 112, respirations 20, O2 saturation 97% on room air, and blood pressure 127/81. HEENT: Normocephalic, atraumatic. Pupils are equal, round, and reactive to light. Sclerae without icterus. Oropharynx is clear. NECK: Supple. No lymphadenopathy. LUNGS: Clear to auscultation bilaterally without wheezes, rales, or rhonchi. CARDIAC: Regular rate and rhythm without audible murmurs, rubs, or gallops. ABDOMEN: Soft, mild firmness in the suprapubic region. No guarding or rigidity. Discomfort with palpation to the left side of the abdomen, to the left of the ostomy, as well as in the left suprapubic region. No renal angle tenderness. EXTREMITIES: Bilateral calves with minimal discomfort on palpation. No edema or swelling apparent. Peripheral pulses equal bilaterally. NEUROLOGIC: Alert and oriented x3. SKIN: Warm and dry. LABORATORY DATA: White count 18.5, hemoglobin 16.1, hematocrit 47.8, platelets 197, neutrophils 79.5%. Sodium 135, potassium 4.0, chloride 96, carbon dioxide 30, anion gap 13, BUN 9, creatinine 0.91, GFR greater than 90, glucose 96, lactic acid 1.2, calcium 10.2, total bilirubin 0.9, AST 47, ALT 114, alkaline phosphatase 157, total protein 9, albumin 5, globulin 4, lipase 7. IMAGING DATA: CT of the abdomen and pelvis showed no evidence for acute process. Interval resolution of fluid collection previously seen in the pelvis with a minimal amount of scarring/granulation tissue. No bowel dilatation, inflammatory fat stranding, free fluid or free air apparent. ED COURSE: In the Emergency Department, the patient underwent above investigations. He was started on IV antibiotics with Cipro and metronidazole. He was given morphine for the pain. He also has received IV fluids. The patient had a temperature of 101.5 in the ER. His case, per ED physician, was discussed with Dr. Hutson who advised since the CT was negative and patient had a white count that he be admitted for IV antibiotics under our service with plans to have him evaluated by General Surgery tomorrow morning. IMPRESSION AND PLAN: Mr. Moore is a pleasant 29-year-old gentleman presenting with left-sided abdominal discomfort, status post a colostomy/diverticular abscess drainage done in May [address] Hutson. The patient with CT abdomen and pelvis that was negative and laboratory studies are notable for an elevated white count as well as a fever. The patient, on exam, has some mild discomfort to the left side of the ostomy. However, the ostomy itself looks well, healthy and without any evidence of ischemia, bleeding, or purulent discharge. He has some mild firmness and discomfort in the left suprapubic region. Pain is controlled at the moment. 1. We will continue IV antibiotics. 2. General Surgery consultation pending for the morning. 3. We will continue to manage pain. 4. We will obtain a bladder scan as well as urinalysis and urine culture to ensure patient does not have underlying urinary infection causing retention. 5. Venous Dopplers given complaints of lower extremity swelling and shortness of breath, as well as tachycardia and episode of chest pain. We will add on a D-dimer as well. 6. Baseline chest x-ray for the morning. The patient is asymptomatic at present. No chest pain or shortness of breath at present. Saturations are normal. 7. Code status full. Surrogate decision maker is his , Trudy Quintero. The patient's case discussed with attending, who agrees with plan of care as described above. Job ID: [id number]
[2019-07-14] MEDS ORDERED: Morphine 2 MG/ML SYRINGE SLOW IVP PRN ×2 (02:40→09:33)
[2019-07-14] MEDS: Sodium Chloride 0.9% 1,000 ML IV SCH ×2 (02:50→13:27)
[2019-07-14 05:53] LABS: #Eosinphils 0.1 thou/uL (0.0-0.7); #Lymphocytes 1.7 thou/uL (1.20-3.40); #Monocytes 2.2 thou/uL (0.11-0.59); #Neutrophils 10.7 thou/uL (1.40-6.50); %Basophils 0.2 % (0.0-1.0); %Eosinophils 0.5 % (0.0-10.0); %Lymphocytes 11.6 % (21.0-51.0); %Monocytes 14.7 % (0.0-10.0); Hemoglobin 13.8 g/dL (14.0-18.0); Mean Corpuscular HGB CONC 30.5 g/dL (32.0-36.0); Mean Corpuscular Hemoglobin 26.8 pg (27.0-31.0); Mean Corpuscular Volume 87.9 fL (78.0-98.0); Mean Platelet Volume 9.1 fL (7.4-10.4); Platelet Count 157 thou/uL (130-400); RBC Distribution Width 13.4 % (11.5-14.5); Red Blood Cell (RBC) Count 5.14 mill/uL (4.70-6.10); White Blood Cell (WBC) Count 14.6 thou/uL (4.8-10.8)
[2019-07-14 06:18] LABS: ALT (SGPT) 79 U/L (8-55); AST (SGOT) 31 U/L (5-34); Albumin 4.2 g/dL (3.5-5.0); Alkaline Phosphatase 119 U/L (40-110); Anion Gap 10 mmol/L (10-20); BUN (Urea Nitrogen) 11 mg/dL (8.9-20.6); Bilirubin, Total 0.6 mg/dL (0.2-1.2); Calc. Creatinine Clearance 182 mL/min (70-130); Calcium 9.3 mg/dL (7.8-10.44); Carbon Dioxide 28 mmol/L (22-29); Chloride 104 mmol/L (98-107); Estimated GFR-MDRD Greater than 90; Globulin 3.4 g/dL (2.4-3.5); Glucose 105 mg/dL (70-105); Potassium 4.8 mmol/L (3.5-5.1); Protein, Total 7.6 g/dL (6.0-8.3); Sodium 137 mmol/L (136-145)
--- NOTE | 2019-07-14 08:17 | ULT ---
PRELIMINARY REPORT/[facility]/AFTER HOURS PROCEDURE BILATERAL LOWER EXTREMITY VENOUS DUPLEX ULTRASOUND: CLINICAL HISTORY: BLE pain/edema. Recent colon surgery. Negative for BLE DVT. TECHNIQUE: Real-time ultrasound scan of the veins of the bilateral lower extremity with color Doppler flow, spec tral waveform analysis and compression. COMPARISON: None provided. FINDINGS: DEEP VEINS: The common femoral, femoral, and popliteal veins are echolucent and compressible. These v essels demonstrate respiratory variation and augmentation. There is normal color Doppler flow through out. The visualized calf veins are also patent. SUPERFICIAL VEINS: The visualized greater saphenous vein is patent. SOFT TISSUES: No popliteal fossa cyst or other abnormalities. IMPRESSION: No deep venous thrombosis in the bilateral lower extremity. ELECTRONICALLY SIGNED BY: Juvencio Nicholson MD Jul 14, 2019 2:17:12 AM [employer] This report is intended for review by the ordering physician only, in accordance of law. If you recei ve this report in error, please call [facility] at [phone]. FINAL REPORT BILATERAL LOWER EXTREMITY VENOUS DOPPLER ULTRASOUND: I agree with the preliminary report given by Dr. Juvencio Nicholson of [facility]. CODE QA POS: [facility]
--- NOTE | 2019-07-14 08:24 | RAD ---
Exam: Chest 2 views HISTORY:Baseline FINDINGS: Lungs: No masses or consolidation. Cardiac silhouette: Normal size Pulmonary vessels: Normal Pleural Spaces: Clear Pneumothorax: None Osseous abnormalities: None of acuity. IMPRESSION: No focal consolidation.
[2019-07-14] MEDS ORDERED: Famotidine/PF 20 mg/2ml Vial SLOW IVP SCH (09:00)
[2019-07-14] MEDS ORDERED: Acetaminophen 1,000 MG in Premix Bag 1 BAG IVPB PRN (09:36)
--- NOTE | 2019-07-14 09:36 | PDOC.HOSPP ---
- Subjective Subjective: Mr. Moore reports pain around his left ostomy site. He states at home he noticed redness to the ostomy when he cleaned off the stool. He felt feverish at home and had nausea. Otherwise denies other symptoms. - Objective Vital Signs & Weight: Vital Signs (12 hours) Temp Pulse Resp BP BP Pulse Ox 07/14/19 07:27 100.0 F H 88 16 123/78 98 07/14/19 04:00 98.1 F 83 20 126/87 100 07/14/19 00:00 98.1 F 90 20 132/75 97 07/13/19 22:30 99.5 F 112 H 20 127/81 97 Weight Weight 208 lb 8 oz I&O: 07/13/19 07/14/19 07/15/19 06:59 06:59 06:59 Intake Total 400 Balance 400 Result Diagrams: 07/14/19 05:30 07/14/19 05:30 Hospitalist ROS - Review of Systems Constitutional: reports: fever. denies: chills, sweats, weakness, malaise, other Respiratory: denies: cough, dry, shortness of breath, hemoptysis, SOB with excertion, pleuritic pain, sputum, wheezing, other Cardiovascular: denies: chest pain, palpitations, orthopnea, paroxysmal noc. dyspnea, edema, light headedness, other Gastrointestinal: reports: nausea, abdominal pain. denies: vomiting, diarrhea, constipation, melena, hematochezia, other - Medication Medications: Active Medications Generic Name Dose Route Start Last Admin Trade Name Freq PRN Reason Stop Dose Admin Famotidine 20 mg 07/14/19 09:00 07/14/19 08:26 Pepcid SLOW IVP 20 mg Q12HR BRANT Administration Sodium Chloride 1,000 mls @ 100 mls/hr 07/14/19 03:00 07/14/19 02:50 Normal Saline 0.9% IV 07/14/19 12:59 1,000 mls .Q10H BRANT Administration - Exam General Appearance: NAD, awake alert Eye: PERRL, anicteric sclera ENT: normocephalic atraumatic, no oropharyngeal lesions, moist mucosa Neck: supple, symmetric, no JVD, no thyromegaly, no lymphadenopathy, no carotid bruit Heart: RRR, no murmur, no gallops, no rubs, normal peripheral pulses Respiratory: CTAB, no wheezes, no rales, no ronchi, normal chest expansion, no tachypnea, normal percussion Gastrointestinal: soft, non-tender, non-distended, normal bowel sounds, no palpable masses, no hepatomegaly, no splenomegaly, no bruit Gastrointestinal - other findings: left ostomy site, intact, stool brown, pain arround site Extremities: no cyanosis, no clubbing, no edema Skin: normal turgor, no lesions, no rashes Neurological: cranial nerve grossly intact, normal sensation to touch, no weakness, no focal deficits, no new deficit Musculoskeletal: normal tone, normal strength, no muscle wasting Psychiatric: normal affect, normal behavior, A&O x 3 Hosp A/P (1) Abdominal pain Code(s): R10.9 - UNSPECIFIED ABDOMINAL PAIN Qualifiers: Abdominal location: periumbilical Qualified Code(s): R10.33 - Periumbilical pain (2) Leukocytosis Code(s): D72.829 - ELEVATED WHITE BLOOD CELL COUNT, UNSPECIFIED Status: Acute (3) History of diverticular abscess of colon Code(s): Z87.19 - PERSONAL HISTORY OF OTHER DISEASES OF THE DIGESTIVE SYSTEM Status: Chronic - Plan Pain umbilical/left sided near ostomy site, no obvious guarding or rebound, possible superficial infection CT abdomen reviewed, no acute process noted within the abdomen Morphine 2mg IV q4hr PRN for pain Zofran PRN for nausea Empiric Zosyn, as having low grade fever and elevated WBC count Pending evaluation by surgical team Continue ostomy care DVT Prophylaxis: SCDs Code status: Full Disposition: Pending eval by surgery. Continue supportive care of ostomy site.
[2019-07-14] MEDS ORDERED: Piperacillin/Tazobactam 3.375 GM in Sodium Chloride 0.9% 100 ML IVPB SCH (12:00)
[2019-07-14 15:21] VITALS: BP 122/79; TEMP 98.1
--- NOTE | 2019-07-14 17:11 | PDISCHARGE ---
Discharge - Disposition Disposition: HOME - Patient Instructions Pre-Printed Education: Dehydration, Adult Additional Instructions: [facility] --OSTOMY SPECIALIST Care Plan Goals: FOCUS: Transition from Acute Care after Discharge GOAL: Successful transition to care in the community YOUR TASKS: (1) review all information outlined in your discharge packet (2) follow any instructions outlined in your discharge packet (3) contact your primary care provider if you have questions or need additional assistance - Referrals and PCP Follow-Up Referrals and PCP Follow-Up: Wound Care - [place] [Outside] - 07/21/19 2:30 pm Joaquim Armando MD [Primary Care Provider] - - Activity Instructions Activity:: Activity as Tolerated - Nourishment Instructions Nourishment:: No Restrictions Course - Course Orders, Labs, Meds: Admitted for pain around ostomy site. CT abdomen did not demonstrate acute abscess or process. Discussed with surgical team, likely his pain more superficial. Cleared by surgery to be discharged [facility] and follow up with ostomy wound care. At the time of discharge, patient understood and reported that pain had subsided. Was counseled on ostomy care and if he noticed high fevers or other worsening symptoms to come back to ED. Patient understood. Follow up with photogrammetric compilation specialist next week. Information provided. (1) Abdominal pain Code(s): R10.9 - UNSPECIFIED ABDOMINAL PAIN Qualifiers: Abdominal location: periumbilical Qualified Code(s): R10.33 - Periumbilical pain (2) Leukocytosis Code(s): D72.829 - ELEVATED WHITE BLOOD CELL COUNT, UNSPECIFIED Status: Acute (3) History of diverticular abscess of colon Code(s): Z87.19 - PERSONAL HISTORY OF OTHER DISEASES OF THE DIGESTIVE SYSTEM Status: Chronic
--- NOTE | 2019-07-14 18:02 | CON ---
DATE OF CONSULTATION: HISTORY OF PRESENT ILLNESS: Konrad Moore is a 29-year-old male patient, status post sigmoid colon resection, colostomy for diverticular abscess by Dr. Hutson. He is scheduled for colostomy reversal in August. He was admitted because of subjective temperature to 100.4 degrees. He is noted to have a mild elevation of his white count to 18,000 on admission yesterday and is 14,000 now. I have been asked to see him regarding problems related to his stoma. The patient reports he has skin irritation about his stoma. He had a CAT scan of the abdomen and pelvis on admission that was unremarkable. He has been placed on intravenous antibiotics empirically. Cultures have been negative to-date. PHYSICAL EXAMINATION: LUNGS: Evaluation reveals his lungs are clear to auscultation. CARDIAC: Regular rate and rhythm without murmur or gallop. ABDOMEN: Soft and nontender. Parastomal area inspected, clean stool from in-situ, visualized it. He has mild dermatitis parastomal. Abdomen is otherwise soft. VITAL SIGNS: He is afebrile. He has remained afebrile since being in the hospital. GENERAL : He denies any complaints at this time. He is tolerating a regular diet. EXTREMITIES: Unremarkable. ASSESSMENT AND PLAN: Stomatitis related to his colostomy stoma. We would recommend outpatient stoma therapy. He does not need intravenous antibiotics. We recommend discharge home and follow up with Dr. Hutson as an outpatient. Job ID: [id number]
== END 2019-07-14 15:23 | disposition home or self-care (01) ==
LOC: ERS 17:58 → T4-B 22:24
PROVIDERS: ADMIT Internal Medicine; ATTEND Internal Medicine
DX: R10.33 Periumbilical pain (principal); K94.09 Other complications of colostomy; D72.829 Elevated white blood cell count, unspecified; F17.200 Nicotine dependence, unspecified, uncomplicated; Z90.49 Acquired absence of other specified parts of digestive tract
CPT/HCPCS: 36415; 71046; 74177; 80053; 81001; 83605; 83690; 85025; 85379; 93970; 96361; 96365; 96367; 96375; 96376; G0378; J0131; J0744; J2270; J2405; J2543; J3490; S0028

== ENCOUNTER 2019-08-17 20:54 | Emergency (ER) | payer SELFPAY ==
[2019-08-17 21:32] LABS: #Eosinphils 0.1 thou/uL (0.0-0.7); #Lymphocytes 2.5 thou/uL (1.20-3.40); #Monocytes 0.7 thou/uL (0.11-0.59); #Neutrophils 5.1 thou/uL (1.40-6.50); %Basophils 0.4 % (0.0-1.0); %Eosinophils 1.3 % (0.0-10.0); %Lymphocytes 29.5 % (21.0-51.0); %Monocytes 8.1 % (0.0-10.0); %Neutrophils 60.7 % (42.0-75.0); Hemoglobin 14.6 g/dL (14.0-18.0); Mean Corpuscular HGB CONC 33.8 g/dL (32.0-36.0); Mean Corpuscular Hemoglobin 29.1 pg (27.0-31.0); Mean Corpuscular Volume 86.1 fL (78.0-98.0); Mean Platelet Volume 9.5 fL (7.4-10.4); Platelet Count 191 thou/uL (130-400); RBC Distribution Width 13.3 % (11.5-14.5); Red Blood Cell (RBC) Count 5.02 mill/uL (4.70-6.10); White Blood Cell (WBC) Count 8.4 thou/uL (4.8-10.8)
[2019-08-17 21:56] LABS: ALT (SGPT) 32 U/L (8-55); AST (SGOT) 22 U/L (5-34); Albumin 4.5 g/dL (3.5-5.0); Alkaline Phosphatase 91 U/L (40-110); Anion Gap 10 mmol/L (10-20); BUN (Urea Nitrogen) 12 mg/dL (8.9-20.6); Bilirubin, Total 0.3 mg/dL (0.2-1.2); Calc. Creatinine Clearance 0 mL/min (70-130); Calcium 9.3 mg/dL (7.8-10.44); Carbon Dioxide 25 mmol/L (22-29); Chloride 108 mmol/L (98-107); Estimated GFR-MDRD Greater than 90; Globulin 3.2 g/dL (2.4-3.5); Glucose 100 mg/dL (70-105); Potassium 4.3 mmol/L (3.5-5.1); Protein, Total 7.7 g/dL (6.0-8.3); Sodium 139 mmol/L (136-145)
== END 2019-08-17 23:26 | disposition left against medical advice (07) ==
LOC: ERS 20:54
DX: Z53.21 Procedure and treatment not carried out due to patient leaving prior to being seen by health care provider (principal); F17.210 Nicotine dependence, cigarettes, uncomplicated
CPT/HCPCS: 36415; 80053; 85025

== ENCOUNTER 2021-01-21 22:39 | Emergency (ER) | payer SELFPAY ==
[2021-01-21] MEDS ORDERED: HYDROcodone/Acetaminophen 10/325 mg Tablet ONE (23:57)
== END 2021-01-22 00:07 ==
LOC: ERS 22:39
DX: S39.011A Strain of muscle, fascia and tendon of abdomen, initial encounter (principal); F17.210 Nicotine dependence, cigarettes, uncomplicated; X58.XXXA Exposure to other specified factors, initial encounter
CPT/HCPCS: 99283

== ENCOUNTER 2021-05-08 10:45 | Emergency (ER) | payer SELFPAY ==
[2021-05-08] MEDS ORDERED: Ketorolac Tromethamine 30 MG/ML VIAL ONE (11:13)
== END 2021-05-08 12:00 | disposition home or self-care (01) ==
LOC: EEVIPCON 10:45 → ERS 10:45
DX: S46.911A Strain of unspecified muscle, fascia and tendon at shoulder and upper arm level, right arm, initial encounter (principal); F17.210 Nicotine dependence, cigarettes, uncomplicated; X50.9XXA Other and unspecified overexertion or strenuous movements or postures, initial encounter
CPT/HCPCS: 96372; J1885

== ENCOUNTER 2021-08-31 20:22 | Emergency (ER) | payer SELFPAY | END 2021-08-31 21:01 | disposition home or self-care (01) | LOC: ERS 20:22 | DX: Z46.89 Encounter for fitting and adjustment of other specified devices (principal); F17.210 Nicotine dependence, cigarettes, uncomplicated | CPT/HCPCS: 99282 ==

== ENCOUNTER 2022-03-21 22:28 | Emergency (ER) | payer SELFPAY ==
[2022-03-22] LABS: #Basophils 0.1 thou/uL (0.0-0.2); #Eosinphils 0.4 thou/uL (0.0-0.7); #Lymphocytes 3.4 thou/uL (1.20-3.40); #Monocytes 0.9 thou/uL (0.11-0.59); #Neutrophils 4.3 thou/uL (1.40-6.50); %Basophils 0.8 % (0.0-1.0); %Eosinophils 4.1 % (0.0-10.0); %Lymphocytes 37.3 % (21.0-51.0); %Monocytes 9.6 % (0.0-10.0); %Neutrophils 48.3 % (42.0-75.0); Hemoglobin 13.8 g/dL (14.0-18.0); Mean Corpuscular HGB CONC 34.7 g/dL (32.0-36.0); Mean Corpuscular Hemoglobin 31.4 pg (27.0-31.0); Mean Corpuscular Volume 90.5 fL (78.0-98.0); Mean Platelet Volume 9.8 fL (7.4-10.4); Platelet Count 186 thou/uL (130-400); RBC Distribution Width 11.8 % (11.5-14.5)
[2022-03-22 00:30] LABS: ALT (SGPT) 16 U/L (8-55); AST (SGOT) 18 U/L (5-34); Alkaline Phosphatase 65 U/L (40-110); Anion Gap 12 mmol/L (10-20); BUN (Urea Nitrogen) 15 mg/dL (8.9-20.6); Bilirubin, Total 0.4 mg/dL (0.2-1.2); Calc. Creatinine Clearance 0 mL/min (70-130); Calcium 8.5 mg/dL (7.8-10.44); Carbon Dioxide 23 mmol/L (22-29); Chloride 106 mmol/L (98-107); Estimated GFR 121; Globulin 2.2 g/dL (2.4-3.5); Glucose 86 mg/dL (70-105); Lipase 25 U/L (8-78); Potassium 3.3 mmol/L (3.5-5.1); Protein, Total 6.2 g/dL (6.0-8.3); Sodium 138 mmol/L (136-145)
[2022-03-22] MEDS ORDERED: Ketorolac Tromethamine 30 MG/ML VIAL ONE (01:25)
[2022-03-22] MEDS ORDERED: Potassium Chloride 20 MEQ TAB ONE (01:25)
== END 2022-03-22 01:45 | disposition home or self-care (01) ==
LOC: ERS 22:28
DX: S30.1XXA Contusion of abdominal wall, initial encounter (principal); E87.6 Hypokalemia; V18.4XXA Pedal cycle driver injured in noncollision transport accident in traffic accident, initial encounter; F17.210 Nicotine dependence, cigarettes, uncomplicated
CPT/HCPCS: 74177; 80053; 83690; 85025; 96372; J1885; Q9967

== ENCOUNTER 2022-03-27 20:49 | Inpatient (IN) | payer OTHER, SELFPAY ==
[~2022-03-27 20:49] MED LIST changes: +Iopamidol 370 76% 100 ML VIAL ONE; -Iopamidol-370 76% 500 ML 1 ML ONE
[2022-03-27] MEDS ORDERED: Ondansetron PF 4 MG/2 ML Vial ONE (21:21)
[2022-03-27 22:09] LABS: #Eosinphils 0.1 thou/uL (0.0-0.7); #Lymphocytes 1.5 thou/uL (1.20-3.40); #Monocytes 1.4 thou/uL (0.11-0.59); %Basophils 0.1 % (0.0-1.0); %Eosinophils 0.4 % (0.0-10.0); %Lymphocytes 7.7 % (21.0-51.0); %Monocytes 7.4 % (0.0-10.0); %Neutrophils 84.4 % (42.0-75.0); Hemoglobin 17.5 g/dL (14.0-18.0); Mean Corpuscular HGB CONC 33.5 g/dL (32.0-36.0); Mean Corpuscular Hemoglobin 29.8 pg (27.0-31.0); Mean Platelet Volume 9.6 fL (7.4-10.4); Platelet Count 248 thou/uL (130-400); RBC Distribution Width 12.3 % (11.5-14.5); Red Blood Cell (RBC) Count 5.88 mill/uL (4.70-6.10); White Blood Cell (WBC) Count 18.9 thou/uL (4.8-10.8)
[2022-03-27 22:29] LABS: ALT (SGPT) 28 U/L (8-55); AST (SGOT) 29 U/L (5-34); Albumin 5.7 g/dL (3.5-5.0); Alkaline Phosphatase 82 U/L (40-110); Anion Gap 23 mmol/L (10-20); BUN (Urea Nitrogen) 19 mg/dL (8.9-20.6); Bilirubin, Total 0.9 mg/dL (0.2-1.2); Calc. Creatinine Clearance 0 mL/min (70-130); Calcium 11.5 mg/dL (7.8-10.44); Carbon Dioxide 20 mmol/L (22-29); Chloride 101 mmol/L (98-107); Estimated GFR 41; Globulin 3.6 g/dL (2.4-3.5); Glucose 92 mg/dL (70-105); Lipase 8 U/L (8-78); Potassium 4.2 mmol/L (3.5-5.1); Protein, Total 9.3 g/dL (6.0-8.3); Sodium 140 mmol/L (136-145)
[2022-03-27 22:53] LABS: Bacteria/HPF 2+ HPF (None Seen); Bilirubin 1+ (Negative); Blood, Urine 1+ (Negative); Clarity Extra Turbid (Clear); Glucose, Urine (Dipstick) 30 mg/dL (Negative); Ketone, Urine Trace mg/dL (Negative); Leukocyte Negative Leu/uL (Negative); Nitrite Negative (Negative); Protein, Urine (Dipstick) 100 mg/dL (Neg-Trace); Specific Gravity, Urine 1.034 (1.002-1.036); WBC/HPF 0-3 HPF (0-3); pH, Urine 5.5 (5.0-9.0)
[2022-03-28] MEDS ORDERED: Piperacillin/Tazobactam 4.5 GM VIAL ONE (00:30)
[2022-03-28] MEDS ORDERED: Ondansetron PF 4 MG/2 ML Vial IVP PRN (00:41)
[2022-03-28] MEDS ORDERED: Bisacodyl 5 MG TAB PO PRN (00:41)
[2022-03-28] MEDS ORDERED: Zolpidem Tartrate 5 MG TAB PO PRN (00:41)
[2022-03-28] MEDS ORDERED: hydrALAZINE 20 MG/ML VIAL SLOW IVP PRN (00:43)
[2022-03-28] MEDS ORDERED: Vancomycin 1 GM/200 ML BAG ONE (01:11)
[2022-03-28 01:52] VITALS: BMI 30.7
[2022-03-28] MEDS: Dextrose 5 % And 0.9 % NaCl 1,000 ML IV SCH ×3 (01:59→17:02)
[2022-03-28] MEDS: metroNIDAZOLE 500 MG in Premix Bag 1 BAG IVPB SCH ×3 (01:59→17:47)
[2022-03-28] MEDS: Nicotine 14 MG PATCH TD SCH (02:00)
[2022-03-28 02:12] LABS: SARS-CoV-2 NAA Rapid Test Not Detected (NotDetected)
[2022-03-28] MEDS ORDERED: Cefepime 1 GM in Sodium Chloride 0.9% 100 ML IVPB SCH (04:00)
[2022-03-28] MEDS ORDERED: Vancomycin 1 GM in Premix Bag 1 BAG IVPB SCH (05:00)
[2022-03-28 06:10] LABS: #Basophils 0.1 thou/uL (0.0-0.2); #Eosinphils 0.1 thou/uL (0.0-0.7); #Lymphocytes 2.7 thou/uL (1.20-3.40); #Monocytes 1.4 thou/uL (0.11-0.59); #Neutrophils 7.1 thou/uL (1.40-6.50); %Basophils 0.4 % (0.0-1.0); %Eosinophils 0.6 % (0.0-10.0); %Lymphocytes 24.2 % (21.0-51.0); %Monocytes 12.2 % (0.0-10.0); %Neutrophils 62.5 % (42.0-75.0); Mean Corpuscular HGB CONC 32.6 g/dL (32.0-36.0); Mean Corpuscular Hemoglobin 30.3 pg (27.0-31.0); Mean Corpuscular Volume 93.1 fL (78.0-98.0); Mean Platelet Volume 9.1 fL (7.4-10.4); Platelet Count 227 thou/uL (130-400); RBC Distribution Width 12.2 % (11.5-14.5); Red Blood Cell (RBC) Count 4.63 mill/uL (4.70-6.10); White Blood Cell (WBC) Count 11.3 thou/uL (4.8-10.8)
[2022-03-28 06:27] LABS: ALT (SGPT) 21 U/L (8-55); AST (SGOT) 20 U/L (5-34); Alkaline Phosphatase 55 U/L (40-110); Anion Gap 13 mmol/L (10-20); BUN (Urea Nitrogen) 14 mg/dL (8.9-20.6); Bilirubin, Total 1.1 mg/dL (0.2-1.2); Calc. Creatinine Clearance 153 mL/min (70-130); Calcium 8.8 mg/dL (7.8-10.44); Carbon Dioxide 23 mmol/L (22-29); Chloride 106 mmol/L (98-107); Estimated GFR 112; Globulin 2.3 g/dL (2.4-3.5); Glucose 123 mg/dL (70-105); Potassium 3.6 mmol/L (3.5-5.1); Protein, Total 6.3 g/dL (6.0-8.3); Sodium 138 mmol/L (136-145)
[2022-03-28] MEDS ORDERED: Enoxaparin Sodium 30 MG/0.3 ML SYRINGE SC SCH (09:00)
[2022-03-28] MEDS: Famotidine 20 MG TAB PO SCH ×2 (09:33→21:57)
[2022-03-28] MEDS: Morphine 2 MG/ML VIAL SLOW IVP PRN ×4 (09:46→23:31)
[2022-03-28] MEDS: Cefepime 2 GM in Sodium Chloride 0.9% 100 ML IVPB SCH (15:07)
[2022-03-28] MEDS: HYDROcodone/Acetaminophen 5/325 mg Tablet PO PRN ×2 (16:08→21:55)
[2022-03-29] MEDS ORDERED: VANCOMYCIN 2 GRAM/500 ML BAG 2 GM in Premix Bag 1 BAG IVPB SCH (01:00)
[2022-03-29] MEDS: Nicotine 14 MG PATCH TD SCH (01:45)
[2022-03-29] MEDS: HYDROcodone/Acetaminophen 5/325 mg Tablet PO PRN ×3 (02:38→13:13)
[2022-03-29] MEDS: Dextrose 5 % And 0.9 % NaCl 1,000 ML IV SCH ×2 (02:39→09:14)
[2022-03-29] MEDS: metroNIDAZOLE 500 MG in Premix Bag 1 BAG IVPB SCH ×2 (02:39→09:15)
[2022-03-29] MEDS: Morphine 2 MG/ML VIAL SLOW IVP PRN ×2 (05:13→09:14)
[2022-03-29] MEDS: Cefepime 2 GM in Sodium Chloride 0.9% 100 ML IVPB SCH (05:14)
[2022-03-29] MEDS ORDERED: Enoxaparin Sodium 40 MG/0.4 ML SYRINGE SC SCH (09:00)
[2022-03-29] MEDS: Famotidine 20 MG TAB PO SCH (09:15)
[2022-03-29 14:55] VITALS: BP 117/72; TEMP 97.9
== END 2022-03-29 15:37 | disposition home or self-care (01) | DRG 605 ==
LOC: ERS 20:49 → SURG A 03-28 00:33 → OBSVTOIN 03-28 16:28
PROVIDERS: ADMIT Internal Medicine; ATTEND Internal Medicine
DX: S30.1XXA Contusion of abdominal wall, initial encounter (principal); N17.9 Acute kidney failure, unspecified; Z20.822 Contact with and (suspected) exposure to COVID-19; E86.0 Dehydration; F17.210 Nicotine dependence, cigarettes, uncomplicated; V19.9XXA Pedal cyclist (driver) (passenger) injured in unspecified traffic accident, initial encounter; Z87.19 Personal history of other diseases of the digestive system
CPT/HCPCS: 36415; 71045; 74177; 80053; 81003; 81015; 83605; 83690; 85025; 87040; 87086; 96361; 96365; 96372; 96374; 96375; 96376; 97139; G0378; J0692; J1650; J2270; J2405; J2543; J3370; J3490; J7042; Q9967; U0002

== ENCOUNTER 2022-07-06 10:25 | Outpatient (CLI) | payer SELFPAY ==
[2022-07-06 11:13] LABS: #Eosinphils 0.1 10x3/uL (0.0-0.5); #Monocytes 0.7 10x3/uL (0.0-1.1); #Neutrophils 2.4 10x3/uL (1.5-8.4); %Basophils 0.8 % (0.0-2.0); %Eosinophils 2.6 % (0.0-6.0); %Lymphocytes 34.7 % (18.0-47.0); %Monocytes 14.3 % (0.0-10.0); %Neutrophils 46.8 % (40.0-75.0); Hemoglobin 15.3 g/dL (13.5-17.5); Mean Corpuscular HGB CONC 33.3 g/dL (32.0-36.0); Mean Corpuscular Volume 87.1 fl (81.2-95.1); Mean Platelet Volume 12.2 fl (7.4-10.4); Platelet Count 181 10x3/uL (150-450); Red Blood Cell (RBC) Count 5.27 10x6/uL (4.32-5.72)
[2022-07-06 11:22] LABS: Anion Gap 17 mmol/L (10-20); BUN (Urea Nitrogen) 12 mg/dL (8.9-20.6); Calc. Creatinine Clearance 0 mL/min (70-130); Calcium 9.3 mg/dL (7.8-10.44); Carbon Dioxide 22 mmol/L (22-29); Chloride 107 mmol/L (98-107); Estimated GFR 120; Glucose 107 mg/dL (70-105); Potassium 4.2 mmol/L (3.5-5.1); Sodium 142 mmol/L (136-145)
[2022-07-06 12:49] LABS: Hemoglobin A1c 4.8 % (4.0-6.0)
== END 2022-07-06 10:26 | disposition home or self-care (01) ==
LOC: LABBT 10:25
PROVIDERS: ATTEND Surgery
DX: Z01.812 Encounter for preprocedural laboratory examination (principal); Z93.3 Colostomy status
CPT/HCPCS: 80048; 83036; 85025

== ENCOUNTER 2022-08-20 19:28 | Emergency (ER) | payer SELFPAY ==
[2022-08-20] MEDS ORDERED: Boostrix 0.5 ML (Tdap) VIAL (>/=7 yrs of age) ONE (19:48)
[2022-08-20] MEDS ORDERED: Lidocaine 1% PF 5 ML VIAL ONE (20:01)
== END 2022-08-20 20:24 | disposition home or self-care (01) ==
LOC: ERS 19:28
DX: S61.411A Laceration without foreign body of right hand, initial encounter (principal); F17.210 Nicotine dependence, cigarettes, uncomplicated; Z23 Encounter for immunization
CPT/HCPCS: 12001; 90471; 90715

== ENCOUNTER 2023-05-27 10:30 | Inpatient (IN) | payer OTHER ==
[2023-05-27 11:53] VITALS: BMI 25.5
[2023-06-03] MEDS ORDERED: Lidocaine 1% MPF 2 ML VIAL ONE (09:00)
[2023-06-03] MEDS ORDERED: Sodium Chloride 0.9% 100 ML ONE (09:01)
[2023-06-03] MEDS ORDERED: cefOXitin 2 GM VIAL ONE (09:01)
[2023-06-03] MEDS ORDERED: Midazolam HCl 2 mg/2 ml Vial ONE (09:40)
[2023-06-03] MEDS ORDERED: Bupivacaine 0.25% HCL 30 ML VIAL ONE (09:40)
[2023-06-03] MEDS ORDERED: fentaNYL 50 mcg/mL 1 mL Vial ONE ×5 (09:40→16:08)
[2023-06-03] MEDS ORDERED: Dexmedetomidine 200 MCG/2 ML VIAL ONE (09:48)
[2023-06-03] MEDS ORDERED: PROPOFOL 20 ML ONE (10:16)
[2023-06-03] MEDS ORDERED: Fentanyl 250 MCG/5 ML VIAL ONE (10:16)
[2023-06-03] MEDS ORDERED: Dexamethasone 4 mg/ml Vial ONE (10:17)
[2023-06-03] MEDS ORDERED: Lidocaine 1% PF 5 ML VIAL ONE ×2 (10:17→10:48)
[2023-06-03] MEDS ORDERED: Rocuronium Bromide 10 MG/ML (10ML VIAL) ONE ×2 (10:17→10:48)
[2023-06-03] MEDS ORDERED: Ondansetron PF 4 MG/2 ML Vial ONE ×2 (10:17→10:48)
[2023-06-03] MEDS ORDERED: SUGAMMADEX SODIUM 200 MG/2 ML VIAL ONE (10:20)
[2023-06-03] MEDS ORDERED: Dexamethasone 20 MG/5 ML VIAL ONE (10:48)
[2023-06-03] MEDS ORDERED: PROPOFOL 200 MG/20 ML VIAL ONE (10:48)
[2023-06-03] MEDS ORDERED: Bupivacaine/Epinephrine 0.25% 30 ML VIAL ONE (10:48)
[2023-06-03] MEDS ORDERED: Promethazine HCl 25 MG/ML VIAL IM PRN ×2 (11:12→12:55)
[2023-06-03] MEDS ORDERED: Ondansetron HCl/PF 4 MG/2 ML Vial IVP PRN (11:12)
[2023-06-03] MEDS ORDERED: Ketorolac Tromethamine 30 MG/ML VIAL IVP PRN (11:12)
[2023-06-03] MEDS ORDERED: HYDROmorphone 2 MG/ML VIAL SLOW IVP PRN (11:12)
[2023-06-03] MEDS ORDERED: Ondansetron PF 4 MG/2 ML Vial IVP PRN (12:55)
[2023-06-03] MEDS ORDERED: hydrALAZINE 20 MG/ML VIAL SLOW IVP PRN (12:55)
[2023-06-03] MEDS ORDERED: Ipratropium/Albuterol 3 ML NEB NEB PRN (12:55)
[2023-06-03] MEDS ORDERED: Morphine 2 MG/ML VIAL SLOW IVP PRN (12:55)
[2023-06-03] MEDS ORDERED: Ketorolac Tromethamine 30 MG/ML VIAL ONE (13:42)
[2023-06-03] MEDS ORDERED: HYDROmorphone 0.5 MG/0.5 ML SYRINGE ONE ×4 (14:11→17:28)
[2023-06-03] MEDS ORDERED: fentaNYL PF 100 MCG/2 ML SYRINGE ONE (15:34)
[2023-06-03] MEDS ORDERED: cefOXitin 2 GM in Sodium Chloride 0.9% 100 ML IVPB SCH (17:00)
[2023-06-03] MEDS ORDERED: Morphine 4 MG/ML VIAL ONE (17:59)
[2023-06-03] MEDS ORDERED: Ketorolac Tromethamine 30 MG/ML VIAL IVP SCH (18:00)
[2023-06-03] MEDS: Morphine 4 MG/ML VIAL SLOW IVP PRN ×3 (18:16→22:13)
[2023-06-03] MEDS: Sodium Chloride 0.9% 1,000 ML IV SCH ×2 (18:18→20:15)
[2023-06-03] MEDS: Famotidine/PF 20 mg/2ml Vial SLOW IVP SCH (20:11)
[2023-06-03] MEDS: Famotidine 20 MG TAB PO SCH (21:38)
[2023-06-04] MEDS: Morphine 4 MG/ML VIAL SLOW IVP PRN ×4 (00:01→07:07)
[2023-06-04] MEDS: Ketorolac Tromethamine 30 MG/ML VIAL IVP SCH ×5 (02:44→23:33)
[2023-06-04] MEDS ORDERED: cefOXitin 2 GM in Sodium Chloride 0.9% 100 ML IVPB SCH (04:00)
[2023-06-04] MEDS: Sodium Chloride 0.9% 1,000 ML IV SCH ×4 (04:56→23:33)
[2023-06-04 05:25] LABS: #Basophils 0.1 thou/uL (0.0-0.2); #Monocytes 2.2 thou/uL (0.11-0.59); #Neutrophils 16.9 thou/uL (1.40-6.50); %Basophils 0.2 % (0.0-1.0); %Lymphocytes 6.7 % (21.0-51.0); %Monocytes 10.5 % (0.0-10.0); %Neutrophils 81.4 % (42.0-75.0); Hemoglobin 11.6 g/dL (14.0-18.0); Mean Corpuscular HGB CONC 32.2 g/dL (32.0-36.0); Mean Corpuscular Hemoglobin 29.1 pg (27.0-31.0); Mean Corpuscular Volume 90.5 fl (78.0-98.0); Mean Platelet Volume 11.8 fL (7.4-10.4); Platelet Count 230 10x3/uL (130-400); RBC Distribution Width 13.1 % (11.5-14.5); Red Blood Cell (RBC) Count 3.98 mill/uL (4.70-6.10); White Blood Cell (WBC) Count 20.7 10x3/uL (4.8-10.8)
[2023-06-04 06:02] LABS: Anion Gap 16 mmol/L (10-20); BUN (Urea Nitrogen) 11 mg/dL (8.9-20.6); Calc. Creatinine Clearance 140 mL/min (70-130); Calcium 8.5 mg/dL (7.8-10.44); Carbon Dioxide 23 mmol/L (22-29); Chloride 101 mmol/L (98-107); Estimated GFR 119; Glucose 139 mg/dL (70-105); Potassium 4.1 mmol/L (3.5-5.1); Sodium 136 mmol/L (136-145)
[2023-06-04] MEDS ORDERED: Promethazine HCl 25 MG/ML VIAL IM PRN ×2 (08:45→19:16)
[2023-06-04] MEDS ORDERED: Zolpidem Tartrate 5 MG TAB PO PRN (08:45)
[2023-06-04] MEDS ORDERED: Naloxone HCl 0.4 mg/ml Vial IV PRN ×2 (08:45→19:16)
[2023-06-04] MEDS ORDERED: Ondansetron PF 4 MG/2 ML Vial IVP PRN (08:45)
[2023-06-04] MEDS ORDERED: Fentanyl CADD 100 ML IVPB SCH ×2 (08:45→19:05)
[2023-06-04] MEDS ORDERED: diphenhydrAMINE 25 MG CAP PO PRN ×2 (08:45→19:16)
[2023-06-04] MEDS ORDERED: diphenhydrAMINE 50 MG/ML VIAL IM/IV PRN (08:45)
[2023-06-04] MEDS: Famotidine/PF 20 mg/2ml Vial SLOW IVP SCH ×2 (10:25→20:53)
[2023-06-04] MEDS: Famotidine 20 MG TAB PO SCH ×2 (10:26→21:09)
[2023-06-04] MEDS ORDERED: diphenhydrAMINE 50 MG/ML VIAL IM PRN (19:16)
[2023-06-04] MEDS ORDERED: diphenhydrAMINE 50 MG/ML VIAL IVP PRN (19:16)
[2023-06-04] MEDS ORDERED: Communication Order-Pharmacy FS SCH (19:30)
[2023-06-04] MEDS: HYDROmorphone/PF 10 MG in Sodium Chloride 0.9% 99 ML IV PRN (20:35)
[2023-06-05] MEDS: Ondansetron PF 4 MG/2 ML Vial IVP PRN ×2 (00:37→10:19)
[2023-06-05 03:42] LABS: #Monocytes 1.7 thou/uL (0.11-0.59); #Neutrophils 10.4 thou/uL (1.40-6.50); %Basophils 0.2 % (0.0-1.0); %Lymphocytes 10.6 % (21.0-51.0); %Monocytes 12.6 % (0.0-10.0); %Neutrophils 76.1 % (42.0-75.0); Mean Corpuscular HGB CONC 32.9 g/dL (32.0-36.0); Mean Corpuscular Hemoglobin 30.1 pg (27.0-31.0); Mean Corpuscular Volume 91.5 fl (78.0-98.0); Mean Platelet Volume 11.5 fL (7.4-10.4); Platelet Count 184 10x3/uL (130-400); RBC Distribution Width 13.2 % (11.5-14.5); Red Blood Cell (RBC) Count 2.59 mill/uL (4.70-6.10); White Blood Cell (WBC) Count 13.7 10x3/uL (4.8-10.8)
[2023-06-05 03:46] LABS: Hematocrit 23.7 % (42.0-52.0); Hemoglobin 7.8 g/dL (14.0-18.0)
[2023-06-05 03:58] LABS: Anion Gap 12 mmol/L (10-20); BUN (Urea Nitrogen) 14 mg/dL (8.9-20.6); Calc. Creatinine Clearance 145 mL/min (70-130); Calcium 8.5 mg/dL (7.8-10.44); Carbon Dioxide 26 mmol/L (22-29); Chloride 105 mmol/L (98-107); Estimated GFR 120; Glucose 130 mg/dL (70-105); Potassium 4.9 mmol/L (3.5-5.1); Sodium 138 mmol/L (136-145)
[2023-06-05] MEDS: Ketorolac Tromethamine 30 MG/ML VIAL IVP SCH ×4 (05:42→19:58)
[2023-06-05] MEDS: Sodium Chloride 0.9% 1,000 ML IV SCH ×3 (05:46→23:01)
[2023-06-05 09:05] LABS: Hematocrit 21.8 % (42.0-52.0); Hemoglobin 7.1 g/dL (14.0-18.0)
[2023-06-05] MEDS: Famotidine/PF 20 mg/2ml Vial SLOW IVP SCH ×2 (10:19→19:58)
[2023-06-05] MEDS: Famotidine 20 MG TAB PO SCH ×2 (10:19→19:55)
[2023-06-05] MEDS: HYDROmorphone/PF 10 MG in Sodium Chloride 0.9% 99 ML IV PRN (10:22)
[2023-06-05 13:10] LABS: Hematocrit 19.8 % (42.0-52.0); Hemoglobin 6.4 g/dL (14.0-18.0)
[2023-06-06] MEDS: HYDROmorphone/PF 10 MG in Sodium Chloride 0.9% 99 ML IV PRN (00:47)
[2023-06-06 01:23] LABS: Hematocrit 22.2 % (42.0-52.0); Hemoglobin 7.6 g/dL (14.0-18.0)
[2023-06-06] MEDS: Ketorolac Tromethamine 30 MG/ML VIAL IVP SCH (05:30)
[2023-06-06] MEDS: Sodium Chloride 0.9% 1,000 ML IV SCH ×3 (08:17→21:42)
[2023-06-06] MEDS: Famotidine/PF 20 mg/2ml Vial SLOW IVP SCH ×2 (08:18→20:04)
[2023-06-06] MEDS: Famotidine 20 MG TAB PO SCH ×2 (08:19→20:03)
[2023-06-06 09:25] LABS: Hematocrit 23.3 % (42.0-52.0); Hemoglobin 7.8 g/dL (14.0-18.0)
[2023-06-06] MEDS ORDERED: Fentanyl CADD 100 ML IVPB SCH (15:30)
[2023-06-06 17:16] LABS: Hematocrit 22.5 % (42.0-52.0); Hemoglobin 7.7 g/dL (14.0-18.0)
[2023-06-06] MEDS: Ondansetron PF 4 MG/2 ML Vial IVP PRN (17:35)
[2023-06-06 17:56] LABS: #Eosinphils 0.2 thou/uL (0.0-0.7); #Monocytes 0.9 thou/uL (0.11-0.59); #Neutrophils 5.8 thou/uL (1.40-6.50); %Basophils 0.2 % (0.0-1.0); %Eosinophils 1.8 % (0.0-10.0); %Lymphocytes 14.8 % (21.0-51.0); %Monocytes 11.3 % (0.0-10.0); %Neutrophils 70.9 % (42.0-75.0); Hematocrit 22.3 % (42.0-52.0); Hemoglobin 7.5 g/dL (14.0-18.0); Mean Corpuscular HGB CONC 33.6 g/dL (32.0-36.0); Mean Corpuscular Hemoglobin 30.2 pg (27.0-31.0); Mean Corpuscular Volume 89.9 fl (78.0-98.0); Mean Platelet Volume 10.5 fL (7.4-10.4); Platelet Count 145 10x3/uL (130-400); RBC Distribution Width 13.2 % (11.5-14.5); Red Blood Cell (RBC) Count 2.48 mill/uL (4.70-6.10); White Blood Cell (WBC) Count 8.2 10x3/uL (4.8-10.8)
[2023-06-06 20:43] LABS: Hematocrit 22.6 % (42.0-52.0); Hemoglobin 7.6 g/dL (14.0-18.0)
[2023-06-07 02:30] LABS: Hematocrit 22.4 % (42.0-52.0); Hemoglobin 7.5 g/dL (14.0-18.0)
[2023-06-07] MEDS: Ondansetron PF 4 MG/2 ML Vial IVP PRN (05:33)
[2023-06-07] MEDS: Famotidine/PF 20 mg/2ml Vial SLOW IVP SCH ×2 (09:12→20:38)
[2023-06-07] MEDS: Sodium Chloride 0.9% 1,000 ML IV SCH ×2 (09:12→16:56)
[2023-06-07] MEDS: Famotidine 20 MG TAB PO SCH ×2 (09:12→20:38)
[2023-06-07 09:44] LABS: Hematocrit 24.3 % (42.0-52.0); Hemoglobin 8.2 g/dL (14.0-18.0)
[2023-06-07] MEDS ORDERED: Ondansetron PF 4 MG/2 ML Vial IVP PRN (13:16)
[2023-06-07] MEDS ORDERED: Naloxone HCl 0.4 mg/ml Vial IV PRN (13:16)
[2023-06-07] MEDS ORDERED: Promethazine HCl 25 MG/ML VIAL IM PRN (13:16)
[2023-06-07] MEDS ORDERED: diphenhydrAMINE 50 MG/ML VIAL IM PRN (13:16)
[2023-06-07] MEDS ORDERED: diphenhydrAMINE 50 MG/ML VIAL IVP PRN (13:16)
[2023-06-07] MEDS ORDERED: diphenhydrAMINE 25 MG CAP PO PRN (13:16)
[2023-06-07] MEDS ORDERED: FENTANYL 500 MCG/10 ML VIAL 2,000 MCG in Sodium Chloride 0.9% 60 ML IV PRN (13:16)
[2023-06-07] MEDS ORDERED: Ibuprofen 600 MG TAB PO PRN (13:22)
[2023-06-07] MEDS ORDERED: Fentanyl CADD 100 ML IVPB PRN (13:30)
[2023-06-07] MEDS ORDERED: Communication Order-Pharmacy FS SCH (13:30)
[2023-06-07 14:58] LABS: Hemoglobin 8.2 g/dL (14.0-18.0)
[2023-06-07] MEDS: Acetaminophen 325 MG TAB PO SCH ×2 (16:51→22:48)
[2023-06-07] MEDS: Pregabalin 50 MG CAP PO SCH (20:37)
[2023-06-08] MEDS: Sodium Chloride 0.9% 1,000 ML IV SCH ×3 (02:56→17:23)
[2023-06-08] MEDS: Acetaminophen 325 MG TAB PO SCH ×3 (05:17→17:19)
[2023-06-08] MEDS: Famotidine 20 MG TAB PO SCH ×2 (08:59→20:54)
[2023-06-08] MEDS: Famotidine/PF 20 mg/2ml Vial SLOW IVP SCH ×2 (08:59→20:55)
[2023-06-08] MEDS: Pregabalin 50 MG CAP PO SCH ×2 (08:59→20:54)
[2023-06-08 11:04] LABS: #Eosinphils 0.4 thou/uL (0.0-0.7); #Monocytes 1.2 thou/uL (0.11-0.59); #Neutrophils 6.3 thou/uL (1.40-6.50); %Basophils 0.2 % (0.0-1.0); %Eosinophils 4.3 % (0.0-10.0); %Lymphocytes 13.2 % (21.0-51.0); %Neutrophils 68.3 % (42.0-75.0); Hematocrit 24.2 % (42.0-52.0); Hemoglobin 8.1 g/dL (14.0-18.0); Mean Corpuscular HGB CONC 33.5 g/dL (32.0-36.0); Mean Corpuscular Hemoglobin 30.5 pg (27.0-31.0); Mean Platelet Volume 9.6 fL (7.4-10.4); Platelet Count 233 10x3/uL (130-400); RBC Distribution Width 13.3 % (11.5-14.5); Red Blood Cell (RBC) Count 2.66 mill/uL (4.70-6.10); White Blood Cell (WBC) Count 9.2 10x3/uL (4.8-10.8)
[2023-06-08 11:14] LABS: Anion Gap 12 mmol/L (10-20); BUN (Urea Nitrogen) 8 mg/dL (8.9-20.6); Calc. Creatinine Clearance 178 mL/min (70-130); Calcium 8.9 mg/dL (7.8-10.44); Carbon Dioxide 26 mmol/L (22-29); Chloride 103 mmol/L (98-107); Estimated GFR 128; Glucose 99 mg/dL (70-105); Potassium 3.8 mmol/L (3.5-5.1); Sodium 137 mmol/L (136-145)
[2023-06-09] MEDS: Acetaminophen 325 MG TAB PO SCH ×4 (00:12→17:30)
[2023-06-09] MEDS: Sodium Chloride 0.9% 1,000 ML IV SCH ×3 (02:06→17:33)
[2023-06-09] MEDS: Famotidine 20 MG TAB PO SCH ×2 (08:30→22:06)
[2023-06-09] MEDS: Famotidine/PF 20 mg/2ml Vial SLOW IVP SCH ×2 (08:31→22:05)
[2023-06-09] MEDS: Pregabalin 50 MG CAP PO SCH ×2 (08:31→22:06)
[2023-06-09] MEDS ORDERED: HYDROcodone/Acetaminophen 10/325 mg Tablet PO PRN (08:48)
[2023-06-09] MEDS ORDERED: DC PCA Order Set 1 EACH FS SCH (08:48)
[2023-06-09] MEDS: HYDROcodone/Acetaminophen 10/325 mg Tablet PO PRN ×3 (09:29→22:13)
[2023-06-10] MEDS: Acetaminophen 325 MG TAB PO SCH ×3 (00:36→12:00)
[2023-06-10] MEDS: Sodium Chloride 0.9% 1,000 ML IV SCH (01:52)
[2023-06-10] MEDS: HYDROcodone/Acetaminophen 10/325 mg Tablet PO PRN ×2 (01:55→09:39)
[2023-06-10 07:46] VITALS: BP 126/76; TEMP 98.5
[2023-06-10] MEDS: Pregabalin 50 MG CAP PO SCH (09:34)
[2023-06-10] MEDS: Famotidine 20 MG TAB PO SCH (09:35)
[2023-06-10] MEDS: Famotidine/PF 20 mg/2ml Vial SLOW IVP SCH (09:37)
== END 2023-06-10 12:48 | disposition home or self-care (01) | DRG 330 ==
LOC: SURG A 06-03 08:26 → SJJU 06-03 19:25
PROVIDERS: ADMIT Surgery; ATTEND Surgery
PROC: 0DBN0ZZ Excision of Sigmoid Colon, Open Approach (ICD-10-PCS; principal; 2023-06-03)
PROC: 30233N1 Transfusion of Nonautologous Red Blood Cells into Peripheral Vein, Percutaneous Approach (ICD-10-PCS; 2023-06-05)
DX: Z43.3 Encounter for attention to colostomy (principal); K91.840 Postprocedural hemorrhage of a digestive system organ or structure following a digestive system procedure; Y83.8 Other surgical procedures as the cause of abnormal reaction of the patient, or of later complication, without mention of misadventure at the time of the procedure
CPT/HCPCS: 36415; 36416; 36430; 74018; 80048; 85014; 85018; 85025; 86850; 86900; 86901; 88307; 94760; A4314; A4649; J0694; J1100; J1170; J1200; J1650; J1885; J2250; J2270; J2405; J2704; J3010; J3490; J7050; P9016; S0020; S0028

== ENCOUNTER 2023-05-27 10:58 | Outpatient (CLI) | payer OTHER ==
[2023-05-27 12:00] LABS: Manual Diff?? YES
[2023-05-27 12:01] LABS: Hematocrit 42.2 % (38.8-50.0); Hemoglobin 13.8 g/dL (13.5-17.5); Mean Corpuscular HGB CONC 32.7 g/dL (32.0-36.0); Mean Corpuscular Hemoglobin 29.1 pg (27.0-33.0); Mean Corpuscular Volume 88.8 fl (81.2-95.1); Mean Platelet Volume 10.9 fl (7.4-10.4); Platelet Count 228 10x3/uL (150-450); RBC Distribution Width 12.7 % (11.5-14.5); Red Blood Cell (RBC) Count 4.75 10x6/uL (4.32-5.72); White Blood Cell (WBC) Count 8.4 10x3/uL (3.5-10.5)
[2023-05-27 12:18] LABS: ALT (SGPT) 14 U/L (8-55); AST (SGOT) 17 U/L (5-34); Albumin 3.9 g/dL (3.5-5.0); Alkaline Phosphatase 71 U/L (40-110); Anion Gap 12 mmol/L (10-20); BUN (Urea Nitrogen) 11 mg/dL (8.9-20.6); Bilirubin, Total 0.2 mg/dL (0.2-1.2); Calc. Creatinine Clearance 0 mL/min (70-130); Calcium 9.1 mg/dL (7.8-10.44); Carbon Dioxide 22 mmol/L (22-29); Chloride 111 mmol/L (98-107); Estimated GFR 124; Globulin 2.2 g/dL (2.4-3.5); Glucose 93 mg/dL (70-105); Potassium 4.2 mmol/L (3.5-5.1); Protein, Total 6.1 g/dL (6.0-8.3); Sodium 141 mmol/L (136-145)
[2023-05-27 12:24] LABS: Eosinophils 1 % (0-10); Lymphocytes 26 % (21-51); Monocytes 10 % (0-10); Neutrophil 63 % (42-75); Platelet Adequacy Comment Appears Adequate; RBC Morph Comment Within Normal Limits
[2023-05-27 18:23] LABS: Hemoglobin A1c 5.3 % (4.0-6.0)
== END 2023-05-27 10:59 | disposition home or self-care (01) ==
LOC: LABBT 10:58
PROVIDERS: ATTEND Surgery
DX: Z01.812 Encounter for preprocedural laboratory examination (principal); Z93.3 Colostomy status
CPT/HCPCS: 80053; 83036; 85025

== ENCOUNTER 2023-06-24 13:52 | Inpatient (IN) | payer OTHER, SELFPAY ==
[2023-06-24] MEDS ORDERED: Iopamidol-370 76% 500 ML MDV (1 ML CHARGE) ONE (14:34)
[2023-06-24 15:33] LABS: #Monocytes 1.2 thou/uL (0.11-0.59); #Neutrophils 6.9 thou/uL (1.40-6.50); %Basophils 0.4 % (0.0-1.0); %Eosinophils 0.4 % (0.0-10.0); %Lymphocytes 14.1 % (21.0-51.0); %Monocytes 12.2 % (0.0-10.0); %Neutrophils 71.9 % (42.0-75.0); Hematocrit 37.8 % (42.0-52.0); Hemoglobin 12.3 g/dL (14.0-18.0); Mean Corpuscular HGB CONC 32.5 g/dL (32.0-36.0); Mean Corpuscular Hemoglobin 28.2 pg (27.0-31.0); Mean Corpuscular Volume 86.7 fl (78.0-98.0); Mean Platelet Volume 9.7 fL (7.4-10.4); Platelet Count 410 10x3/uL (130-400); RBC Distribution Width 12.8 % (11.5-14.5); Red Blood Cell (RBC) Count 4.36 mill/uL (4.70-6.10); White Blood Cell (WBC) Count 9.6 10x3/uL (4.8-10.8)
[2023-06-24 15:59] LABS: ALT (SGPT) 20 U/L (8-55); AST (SGOT) 21 U/L (5-34); Albumin 4.2 g/dL (3.5-5.0); Alkaline Phosphatase 160 U/L (40-110); Anion Gap 14 mmol/L (10-20); BUN (Urea Nitrogen) 8 mg/dL (8.9-20.6); Bilirubin, Total 0.9 mg/dL (0.2-1.2); Calc. Creatinine Clearance 0 mL/min (70-130); Calcium 10.2 mg/dL (7.8-10.44); Carbon Dioxide 28 mmol/L (22-29); Chloride 98 mmol/L (98-107); Estimated GFR 123; Globulin 4.2 g/dL (2.4-3.5); Glucose 102 mg/dL (70-105); Magnesium 2.1 mg/dL (1.6-2.6); Protein, Total 8.4 g/dL (6.0-8.3); Sodium 136 mmol/L (136-145)
[2023-06-24] MEDS ORDERED: Piperacillin/Tazobactam 4.5 GM VIAL ONE (17:46)
[2023-06-24] MEDS ORDERED: Sodium Chloride 0.9% 100 ML ONE (17:46)
[2023-06-24 18:09] VITALS: BMI 24.7
[2023-06-24 20:22] LABS: Bacteria/HPF None Seen HPF (None Seen); Bilirubin Negative (Negative); Blood, Urine Trace (Negative); CAUTI Indications for Culture Pelvic or flank pain; Clarity Clear (Clear); Glucose, Urine (Dipstick) Normal (Negative); Ketone, Urine Negative (Negative); Leukocyte Negative Leu/uL (Negative); Nitrite Negative (Negative); Protein, Urine (Dipstick) Negative (Neg-Trace); RBC/HPF 0-3 HPF (0-3); Squamous Epithelial None Seen HPF (0-3); Urobilinogen Normal mg/dL (Less than 2); WBC/HPF 0-3 HPF (0-3); pH, Urine 7.5 (5.0-9.0)
[2023-06-24 20:30] LABS: Urine Culture Reflex No No
[2023-06-24] MEDS ORDERED: Ondansetron ODT 4 MG TAB SL PRN (21:45)
[2023-06-24] MEDS ORDERED: Ondansetron PF 4 MG/2 ML Vial IVP PRN (21:45)
[2023-06-24] MEDS: Morphine 4 MG/ML VIAL SLOW IVP PRN (22:47)
[2023-06-24] MEDS: Sodium Chloride 0.9% 1,000 ML IV SCH (22:47)
[2023-06-25] MEDS: Morphine 4 MG/ML VIAL SLOW IVP PRN ×6 (02:04→22:06)
[2023-06-25] MEDS: Sodium Chloride 0.9% 1,000 ML IV SCH (08:15)
[2023-06-25] MEDS ORDERED: Morphine 4 MG/ML VIAL ONE (12:14)
[2023-06-25 12:59] LABS: INR-International Normal Ratio 1.1; Prothrombin Time 14.7 sec (12.0-14.7)
[2023-06-25 13:00] LABS: PTT 52.2 sec (22.9-36.1)
[2023-06-25] MEDS ORDERED: Lidocaine 1% w/Epinephrine 1:100K 20 ML VIAL ONE (13:24)
[2023-06-25] MEDS ORDERED: Sodium Bicarbonate 2.5 MEQ/5 ML VIAL ONE (13:24)
[2023-06-25] MEDS: Piperacillin/Tazobactam 3.375 GM in Sodium Chloride 0.9% 100 ML IVPB SCH ×2 (13:40→22:06)
[2023-06-25] MEDS ORDERED: fentaNYL 50 mcg/mL 1 mL Vial ONE ×2 (14:45→14:57)
[2023-06-25] MEDS ORDERED: fentaNYL 50 mcg/mL 1 mL Vial SLOW IVP PRN (15:45)
[2023-06-25] MEDS ORDERED: Morphine 4 MG/ML VIAL SLOW IVP PRN (17:48)
[2023-06-25] MEDS: Ketorolac Tromethamine 30 MG/ML VIAL IVP SCH ×2 (18:02→23:08)
[2023-06-26] MEDS: Morphine 4 MG/ML VIAL SLOW IVP PRN ×6 (00:16→23:06)
[2023-06-26] MEDS: Piperacillin/Tazobactam 3.375 GM in Sodium Chloride 0.9% 100 ML IVPB SCH ×3 (06:19→23:32)
[2023-06-26] MEDS: Ketorolac Tromethamine 30 MG/ML VIAL IVP SCH ×4 (06:20→23:32)
[2023-06-27] MEDS: Ketorolac Tromethamine 30 MG/ML VIAL IVP SCH ×3 (05:10→18:07)
[2023-06-27] MEDS: Piperacillin/Tazobactam 3.375 GM in Sodium Chloride 0.9% 100 ML IVPB SCH ×3 (05:10→22:16)
[2023-06-27 08:03] LABS: #Eosinphils 0.2 thou/uL (0.0-0.7); #Monocytes 1.2 thou/uL (0.11-0.59); #Neutrophils 5.7 thou/uL (1.40-6.50); %Basophils 0.4 % (0.0-1.0); %Eosinophils 2.4 % (0.0-10.0); %Lymphocytes 15.4 % (21.0-51.0); %Monocytes 13.8 % (0.0-10.0); %Neutrophils 67.2 % (42.0-75.0); Hematocrit 34.4 % (42.0-52.0); Hemoglobin 11.1 g/dL (14.0-18.0); Mean Corpuscular HGB CONC 32.3 g/dL (32.0-36.0); Mean Corpuscular Volume 86.6 fl (78.0-98.0); Mean Platelet Volume 9.3 fL (7.4-10.4); Platelet Count 355 10x3/uL (130-400); RBC Distribution Width 12.8 % (11.5-14.5); Red Blood Cell (RBC) Count 3.97 mill/uL (4.70-6.10); White Blood Cell (WBC) Count 8.5 10x3/uL (4.8-10.8)
[2023-06-27] MEDS: D5 1/2 NS w/20 mEq KCL 1,000 ML IV SCH ×2 (08:07→22:15)
[2023-06-27] MEDS: Morphine 4 MG/ML VIAL SLOW IVP PRN (08:12)
[2023-06-27 08:31] LABS: Anion Gap 11 mmol/L (10-20); BUN (Urea Nitrogen) 8 mg/dL (8.9-20.6); Calc. Creatinine Clearance 136 mL/min (70-130); Calcium 9.3 mg/dL (7.8-10.44); Carbon Dioxide 29 mmol/L (22-29); Chloride 104 mmol/L (98-107); Estimated GFR 119; Glucose 103 mg/dL (70-105); Potassium 4.7 mmol/L (3.5-5.1); Sodium 139 mmol/L (136-145)
[2023-06-28] MEDS: Ketorolac Tromethamine 30 MG/ML VIAL IVP SCH ×2 (00:14→06:36)
[2023-06-28] MEDS: D5 1/2 NS w/20 mEq KCL 1,000 ML IV SCH (00:18)
[2023-06-28 05:16] VITALS: BP 115/74; TEMP 97.7
[2023-06-28] MEDS: Piperacillin/Tazobactam 3.375 GM in Sodium Chloride 0.9% 100 ML IVPB SCH (06:42)
== END 2023-06-28 12:26 | disposition home or self-care (01) | DRG 372 ==
LOC: ERS 13:52 → ERHOLD 17:52 → SURG A 21:39
PROVIDERS: ADMIT Surgery; ATTEND Surgery
PROC: 0W9G3ZZ Drainage of Peritoneal Cavity, Percutaneous Approach (ICD-10-PCS; principal; 2023-06-25)
DX: K65.1 Peritoneal abscess (principal); K56.7 Ileus, unspecified; Z98.890 Other specified postprocedural states; Z90.49 Acquired absence of other specified parts of digestive tract
CPT/HCPCS: 36415; 49020; 74018; 74177; 77002; 80048; 80053; 81001; 83735; 85025; 85610; 85730; 87040; 87070; 87205; J1650; J1885; J2270; J2543; J3010; J3480; J3490; J7050; Q9967

== ENCOUNTER 2024-07-29 20:02 | Emergency (ER) | payer SELFPAY | END 2024-07-29 21:44 | disposition home or self-care (01) | LOC: ERS 20:02 | DX: L03.113 Cellulitis of right upper limb (principal); M65.331 Trigger finger, right middle finger; M65.341 Trigger finger, right ring finger; F17.210 Nicotine dependence, cigarettes, uncomplicated | CPT/HCPCS: 99283 ==

== ENCOUNTER 2024-08-05 23:32 | Emergency (ER) | payer SELFPAY ==
[2024-08-05 23:57] LABS: #Basophils 0.04 10x3/uL (0.0-0.2); %Basophils 0.5 % (0.0-1.0); %Eosinophils 2.8 % (0.0-10.0); %Lymphocytes 31.5 % (21.0-51.0); %Monocytes 11.9 % (0.0-10.0); %Neutrophils 52.5 % (42.0-75.0); Hematocrit 41.9 % (42.0-52.0); Hemoglobin 13.9 g/dL (14.0-18.0); Mean Corpuscular HGB CONC 33.2 g/dL (32.0-36.0); Mean Corpuscular Hemoglobin 28.4 pg (27.0-31.0); Mean Corpuscular Volume 85.7 fL (78.0-98.0); Mean Platelet Volume 10.2 fL (7.4-10.4); Platelet Count 237 10x3/uL (130-400); RBC Distribution Width 12.3 % (11.5-14.5); Red Blood Cell (RBC) Count 4.89 mill/uL (4.70-6.10)
[2024-08-06 00:12] LABS: ALT (SGPT) 26 U/L (Less than 45); AST (SGOT) 33 U/L (11-34); Albumin 4.1 g/dL (3.1-4.5); Alkaline Phosphatase 106 U/L (40-110); Anion Gap 11 mmol/L (10-20); BUN (Urea Nitrogen) 16 mg/dL (8.9-20.6); Bilirubin, Total 0.3 mg/dL (0.3-1.2); Calc. Creatinine Clearance 0 mL/min (70-130); Calcium 9.4 mg/dL (7.8-10.44); Carbon Dioxide 24 mmol/L (22-29); Chloride 108 mmol/L (98-107); Estimated GFR 123; Globulin 3.4 g/dL (2.4-3.5); Glucose 91 mg/dL (70-105); Protein, Total 7.5 g/dL (6.0-8.3); Sodium 139 mmol/L (136-145)
[2024-08-06 00:18] LABS: Troponin I Less than 0.010 ng/mL (< 0.028)
[2024-08-06] MEDS ORDERED: Ondansetron PF 4 MG/2 ML Vial ONE (01:26)
[2024-08-06] MEDS ORDERED: Ketorolac Tromethamine 30 MG (1 mL) VIAL ONE (01:26)
== END 2024-08-06 02:26 | disposition home or self-care (01) ==
LOC: ERS 23:32
DX: R07.2 Precordial pain (principal); F17.210 Nicotine dependence, cigarettes, uncomplicated
CPT/HCPCS: 36415; 71045; 80053; 83690; 84484; 85025; 93005; 96361; 96374; 96375; J1885; J2405